=== PATIENT | female | born 1960 | race Caucasian/White ===

== ENCOUNTER → 2018-07-19 07:24 | Outpatient (CLI) | payer OTHER, SELFPAY ==
--- NOTE | 2018-07-19 07:00 | BI_ITS ---
MAMMOGRAPHY - BILATERAL SCREENING REASON FOR EXAM: Female, 58 years old. Routine annual screening examination. PERTINENT HISTORY: Non-contributory. TECHNIQUE: Digital bilateral breast manoj (3D mammographic acquisition) in the CC and MLO projections. 2-D mediolateral oblique (MLO) and craniocaudad (CC) views of both breasts were obtained. CAD: Full Field Digital Mammography with Computer Added Detection was performed. COMPARISON: Comparison is made with prior study dated March 03, 2017 and December 19, 2015. FINDINGS: Breast Composition: The breasts are heterogeneously dense, which may obscure small masses. There are no dominant masses or suspicious calcifications. No other significant abnormalities are identified. There has been no significant change since the prior study. BI/SCREENING MAMM (CAD), BILAT IMPRESSION: Stable bilateral screening mammogram. Yearly follow-up mammogram recommended. (A) ASSESSMENT CATEGORY: BIRADS Category 1: Negative. A letter regarding these results will be sent to the patient by the facility within 30 days. Approximately 10% of breast cancers are not detected by mammography. A normal mammogram should not delay biopsy of a clinically suspicious abnormality. [id number] Electronically Signed: Ger Herrera MD at 13:41 EDT Tel [phone], Service support ,
== END ==
PROVIDERS: Visit Provider Nurse Practitioner Women's Health
DX: Z12.31 Encounter for screening mammogram for malignant neoplasm of breast (principal)
CPT/HCPCS: 77063; 77067

== ENCOUNTER → 2018-07-26 19:16 | Outpatient (CLI) | payer OTHER, SELFPAY ==
[2018-08-02 13:43] LABS: HPV APTIMA, High Risk Negative (Negative)
== END ==
PROVIDERS: Family Provider Nurse Practitioner Adult Health; PCP Nurse Practitioner Adult Health; Referring Provider Nurse Practitioner Women's Health; Visit Provider Nurse Practitioner Women's Health
DX: Z12.4 Encounter for screening for malignant neoplasm of cervix (principal)
CPT/HCPCS: 87624; 88175; G0145

== ENCOUNTER → 2018-09-07 16:51 | Outpatient (CLI) | payer OTHER, SELFPAY ==
[2018-07-26 15:14] VITALS: BMI 22.7
[2018-09-14 12:01] LABS: HPV APTIMA, High Risk Negative (Negative)
--- OUTSIDE RECORDS SUMMARY | 2018-10-24 22:05 | XMS RPT_ITS ---
:1960 Author Organization OHIP Care Team Providers Name Role Phone Juli Hedrick Attending Unavailable Tickton, Anjelica Referring Unavailable Floridalma, Juli Attending Unavailable [place], Juli Referring Unavailable Tickton, Anjelica Primary Care Unavailable [place], Juli Attending Unavailable Primay Care Physicia, No Primary Care Unavailable Janet Weiss Consulting Unavailable Floridalma, Juli Attending Unavailable Tickton, Anjelica Referring Unavailable Floridalma, Juli Attending Unavailable [place], Juli Referring Unavailable Tickton, Anjelica Primary Care Unavailable PROBLEMS PROBLEMS DATE TYPE CONDITION / CODE ATTENDING STATUS SOURCE 09/07/2018 Unknown R87.615 - Juli Hedrick Active [place] Unsatisfactory Community cytologic smear of [facility] cervix / Repository R87.615(ICD-10) 07/27/2018 Unknown Z12.4 - Encounter for Juli Hedrick Active [place] screening for [facility] malignant neoplasm of Hospital cervix / Repository Z12.4(ICD-10) 07/26/2018 Unknown Z01.411 - Encounter Juli Hedrick Active [place] for gynecological Community examination (general) Hospital (routine) with Repository abnormal findings / Z01.411(ICD-10) 07/26/2018 Unknown N89.8 - Other Juli Hedrick Active [place] specified Community noninflammatory Hospital disorders of vagina / Repository N89.8(ICD-10) 08/09/2018 Unknown Z12.31 - Encounter Juli Hedrick Active [place] for screening [facility] mammogram for Hospital malignant neoplasm of Repository breast / Z12.31(ICD-10) PROCEDURES PROCEDURES No Procedure Records FoundRESULTS RESULTS MEASUREMENT SUPERINTENDENT OFFICE VISIT Observed: 09/07/2018 Status: F Source: [place] REPORT 2:08 PM [facility] REPOSITORY [facility] [address] [place] [address] OFFICE VISIT Date of Service: 09/07/18 MR#: [id number] Acct: [id number] Name: CLARISA REDDY Rep #: [id number] : 1960 Provider: JF Hedrick Age/Sex: 58/F [place] [facility] [place]: Signed Intake Intake Visit Reasons: PAP, Previous pap did not have enough cells Allergies No Known Allergies Allergy (Verified 07/26/18 15:09) Medications NK 07/26/18 [History Confirmed 07/26/18] PFSH Family History Mother Heart disease Hypertension Thyroid disorder Father Hypertension Heart disease Diabetes Leukemia Hyperlipidemia Grandmother Cancer Grandfather Diabetes Hypertension Heart disease Hyperlipidemia Social History Smoking Status: Never smoker alcohol intake: never substance use type: does not use caffeine: No what type of physical activity do you participate in: walking frequency: 1-2 times per week seatbelt use: always do you feel safe at home: Yes additional social history: - Karli- Bottler Patient senior accounting specialist at [employer] HPI PAP, Previous pap did not have enough cells : Details: CLARISA REDDY is a 58 year old who presents for repeat pap only for inadequate specimen in June. Pregancy History 2 Elective abortions Hx Para 2 Spontaneous abortions Past Pregnancies Del. DatName GA/WeeksOutcome Route [facility] Candace Goodwin LgAnestheWVjase LocaProviderFOB e ht en ia tn Unknown Ravi-[id number] 0 Unknown Riana-19 95 Exam Speculum Exam - Vagina: normal appearance of the vagina (pap collected) Assessment AND Plan Problems 1. Unsatisfactory cervical Papanicolaou smear R87.615 Plan Thin prep pap with HPV Coding Level of Care Code No Charge Diagnoses Unsatisfactory cervical Papanicolaou smear R87.615 09/07/18 1408 <Electronically signed by Juli Hedrick NP-C> Date Juli Hedrick CONSTRUCTION WORKER-C Cosigner Signature: Date (if applicable) CC: PAP IG HPV APTIMA Collected: 09/07/2018 Status: F Source: [place] /18,45 2:00 PM [facility] REPOSITORY Order Comment: CYTOLOGY INFORMATION: - CLINICAL INFORMATION: ANNUAL - DATE LMP/MENOPAUSE: MENOPAUSE - COLLECTION VIAL: Thin Prep Vial - RESIDENTIAL CHILD CARE COUNSELOR SOURCE: CERVICAL - COLLECTION TECHNIQUE: CX BROOM ONLY, BRUSH ONLY Specimen Comment: [id number] Specimen Comment: Source.............Cervix Specimen Comment: Other..............Post Menopausal Specimen Comment: No. of containers..01 ThinPrep Vial TYPE CODE TESTS RESULT OUT OF RANGE REFERENCE UNITS LAB L7400.0800 . Normal DIAGN Comment Result Comment: NEGATIVE FOR INTRAEPITHELIAL LESION AND MALIGNANCY. CELLULAR CHANGES ASSOCIATED WITH ATROPHY ARE PRESENT. THIS SPECIMEN WAS RESCREENED PART OF OUR [employer] PROGRAM. LAB L7400.0900 . Normal ADEQ Comment Result Comment: Satisfactory for evaluation. Endocervical and/or squamous metaplastic cells (endocervical component) are present. LAB L7400.1400 . Normal PERFORM Comment Result Comment: Sushma Casillas, Chiropractic Assistant (ASCP) LAB L7400.1500 . Normal QC Comment REV Result Comment: Jessica Lucio, Chiropractic Assistant (ASC) LAB L7400.2575 . Normal TEST METHOD Comment Result Comment: This liquid based ThinPrep(R) pap test was screened with the use of an image guided system. LAB L7400.2600 . Normal . COMM LAB L7400.2700 . Normal PAPSMR Comment Result Comment: The Pap smear is a screening test designed to aid in the detection of premalignant and malignant conditions of the uterine cervix. It is not a diagnostic procedure and should not be used as the sole means of detecting cervical cancer. Both false-positive and false-negative reports do occur. LAB L7400.2760 Negative Normal HPV APTIMA, Negative HR Result Comment: This test detects fourteen high-risk HPV types (16/18/31/33/35/39/45/ 51/52/56/58/59/66/68) without differentiation. Performed at: - [facility] [id number] Director Outpatient Services: Kimber Grullon MD, Phone: [phone] Performed at: =[facility] [id number] Director Outpatient Services: Kimber Grullon MD, Phone: [phone] Performed By: #### L7400.0280 #### [facility] (refer to report for specific site) refer to report for address and phone number MEASUREMENT SUPERINTENDENT OFFICE VISIT Observed: 07/26/2018 Status: F Source: [place] REPORT 3:47 PM [facility] [address] [place] [address] OFFICE VISIT Date of Service: 07/26/18 MR#: [id number] Acct: [id number] Name: CLARISA REDDY [place] Rep #: [id number] : 1960 Provider: JF Hedrick Age/Sex: 58/F [place] [facility] [place]: Signed Intake Vital Signs07/26/18 Height 5 ft 5 in 07/26/18 Weight: 136 lb 8 oz 07/26/18 Body Mass Index (BMI) 22.7 07/26/18 Blood Pressure 124/82 H Intake Visit Reasons: ANNUAL Electronic Warfare Officer Required: No Is patient in pain?: No Allergies No Known Allergies Allergy (Verified 07/26/18 15:09) Medications NK 07/26/18 [History Confirmed 07/26/18] Is last menstrual period known: No Post menopausal: No Patient : No : No PFSH Family History Mother Heart disease Hypertension Thyroid disorder Father Hypertension Heart disease Diabetes Leukemia Hyperlipidemia Grandmother Cancer Grandfather Diabetes Hypertension Heart disease Hyperlipidemia Social History Smoking Status: Never smoker alcohol intake: never substance use type: does not use caffeine: No what type of physical activity do you participate in: walking frequency: 1-2 times per week seatbelt use: always do you feel safe at home: Yes additional social history: - 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 DatName GA/WeeksOutcome Route [facility] LocaProviderFOB e ht en tn Unknown Ravi-199 0 Unknown Riana-19 95 HPI ANNUAL: Details: CLARISA REDDY is a 58 year old who presents for new patient annual exam. Denies concerns other then slight odor and unsure if urine or vaginal. Denies irritation, itching, discharge. RESIDENTIAL CHILD CARE COUNSELOR exams with PCP Dr. Omer. Last PAP: 2014 no HPV History of abnormal PAP: no Last mammogram: 07/19/18 History of abnormal mammogram: no Colon cancer screenin Female Reproductive History Questions: Metorrhagia: No, Sexually active: Yes, Dyspareunia: No, PCB: No Menopausal Symptoms: Yes hot flashes, Yes night sweats, Yes sleep problems Menopausal Treatment: No HRT ROS Const Constitutional: Reports night sweats Cardio Card: Denies chest pain Resp Resp: Denies cough or shortness of breath with activity GI GI: Denies abdominal pain, constipation, change in stools, vomiting or bloating : Reports hot flashes Exam Const General: cooperative, healthy appearing, no acute distress, well developed Orientation: alert, oriented to person, oriented to place HENMT Head: normal to inspection Neck Neck: normal visual inspection Thyroid: thyroid normal Lymphatic: no lymphadenopathy noted Chest Breast inspection: normal inspection of the breasts, normal inspection of the axillae Breast palpation: normal palpation of the breasts, normal palpation of the axillae, no axillary lymphadenopathy Resp Effort AND Inspection: normal respiratory effort GI Palpation: soft, nontender, no masses Rectal Exam: deferred External Female Exam: normal external appearance, normal appearance of the urethra Urethra: normal appearance of the urethra, normal palpation Speculum Exam - Vagina: normal appearance of the vagina, normal vaginal discharge, atrophic vaginal mucosa (mild) Speculum Exam - Cervix: normal appearance of the cervix (pap and BV collected) Bimanual Exam- Vagina AND Uterus: normal bimanual exam, uterine size normal, uterine shape normal, uterus non-tender Bimanual Exam- Adnexa, other: normal adnexae, no adnexal masses, adnexae non-tender, pelvic support normal Pelvic Support: normal Neuro General: alert, oriented x3 Psych Affect: normal affect Assessment AND Plan Problems 1. Encounter for gynecological examination with abnormal finding Z01.411 2. Papanicolaou smear for cervical cancer screening Z12.4 3. Vaginal odor N89.8 Plan Completed breast and pelvic exam Reviewed diet and exercise Pap thin prep pap with HPV Mammogram recent Contraception NA Colonoscopy up to date BRIANNA BV-call only if positive RTO 1 year, prn with problems Juli Hedrick CNP Coding Level of Care Code Off vis,new,prev 40-64yrs Diagnoses Encounter for gynecological examination with abnormal finding Z01.411 Gynecological examination findings: abnormal findings PRESENT Papanicolaou smear for cervical cancer screening Z12.4 Vaginal odor N89.8 07/26/18 1547 <Electronically signed by Juli TOC> Date Juli TOC Cosigner Signature: Date (if applicable) CC: PAP IG HPV APTIMA Collected: 07/26/2018 Status: F Source: [place] 16/18,45 3:30 PM [facility] REPOSITORY Order Comment: CYTOLOGY INFORMATION: - CLINICAL INFORMATION: ANNUAL - DATE LMP/MENOPAUSE: N/A - COLLECTION VIAL: Thin Prep Vial - RESIDENTIAL CHILD CARE COUNSELOR SOURCE: CERVICAL - COLLECTION TECHNIQUE: BRUSH/SPATULA Specimen Comment: [id number] Specimen Comment: Source.............Cervix Specimen Comment: No. of containers..01 ThinPrep Vial TYPE CODE TESTS RESULT OUT OF RANGE REFERENCE UNITS LAB L7400.0800 . Normal DIAGN Comment Result Comment: UNSATISFACTORY FOR EVALUATION. LAB L7400.0900 . Normal ADEQ Comment Result Comment: Specimen processed and examined, but unsatisfactory for evaluation of epithelial abnormality because of excessive lubricant. LAB L7400.1300 . Normal RECOMM Comment Result Comment: Suggest follow up as clinically appropriate. LAB L7400.1400 . Normal PERFORM Comment Result Comment: Nuvia Keller, Chiropractic Assistant (ASC) LAB L7400.1500 . Normal QC Comment REV Result Comment: Funmi Lanza, Supervisory Chiropractic Assistant ([facility]) LAB L7400.2575 . Normal Test not TEST METHOD performed Result Comment: The Thin Prep(R) Mixed Crop And Livestock Farm Worker was unable to read this specimen. Therefore a manual review was performed. LAB L7400.2600 . Normal . COMM LAB L7400.2700 . Normal PAPSMR Comment Result Comment: The Pap smear is a screening test designed to aid in the detection of premalignant and malignant conditions of the uterine cervix. It is not a diagnostic procedure and should not be used as the sole means of detecting cervical cancer. Both false-positive and false-negative reports do occur. LAB L7400.2760 Negative Normal HPV APTIMA, Negative HR Result Comment: This test detects fourteen high-risk HPV types (16/18/31/33/35/39/45/ 51/52/56/58/59/66/68) without differentiation. Performed at: [address] [id number] Director Outpatient Services: Kimber Grullon MD, Phone: [phone] Performed at: =[address] [id number] Director Outpatient Services: Kimber Grullon MD, Phone: [phone] Performed By: #### L7400.0280 #### [facility] (refer to report for specific site) refer to report for address and phone number SCREENING MAMM (CAD), Observed: 07/19/2018 Status: F Source: [place] BILAT 6:56 AM [facility] REPOSITORY [facility] Imaging Services [address] [place] [address] SCREENING MAMM (CAD), BILAT MR#: [id number] Acct: [id number] Name: CLARISA REDDY Rep #: [id number] : 1960 F 58 From: Ger Herrera MD PCP: Care Physician, No Primary Status: REG CLI Study: SCREENING MAMM (CAD), BILAT Date of Exam: 07/19/18 Exam# [id number] Ordering Dr: Juli Hedrick CONSTRUCTION WORKER-Jacquie MAMMOGRAPHY - BILATERAL SCREENING REASON FOR EXAM: Female, 58 years old. Routine annual screening examination. PERTINENT HISTORY: Non-contributory. TECHNIQUE: Digital bilateral breast manoj (3D mammographic acquisition) in the CC and MLO projections. 2-D mediolateral oblique (MLO) and craniocaudad (CC) views of both breasts were obtained. CAD: Full Field Digital Mammography with Computer Added Detection was performed. COMPARISON: Comparison is made with prior study dated March 03, 2017 and December 19, 2015. FINDINGS: Breast Composition: The breasts are heterogeneously dense, which may obscure small masses. There are no dominant masses or suspicious calcifications. No other significant abnormalities are identified. There has been no significant change since the prior study. BI/SCREENING MAMM (CAD), BILAT IMPRESSION: Stable bilateral screening mammogram. Yearly follow-up mammogram recommended. (A) ASSESSMENT CATEGORY: BIRADS Category 1: Negative. A letter regarding these results will be sent to the patient by the facility within 30 days. Approximately 10% of breast cancers are not detected by mammography. A normal mammogram should not delay biopsy of a clinically suspicious abnormality. [id number] Electronically Signed: Ger Herrera MD at 13:41 EDT Tel [phone], Service support , CC: JF Hedrick; No Primary Care Physician Sound System Installer: Signed ALLERGIES ALLERGIES DATE TYPE / CODE NAME / CODE REACTION SEVERITY SOURCE 07/26/2018 Drug No Known Unknown [facility] Allergy/4160 Allergies/F00 Hospital 41982(SNOMED 8720094(RXNOR Repository CT) M) ENCOUNTERS ENCOUNTERS ADMIT/DISCHARGE ACCOUNT ADMITTING ENCOUNTER LOCATION SOURCE NUMBER CLASS 09/07/2018 [id number] Amb[place] [facility] ing:[facility] Repository 09/07/2018/ [id number] Ambulatory BMSBuilding:B [place] [facility] 8 [facility] Repository 07/26/2018 [id number] Ambulatory [place] 1 [facility] ing:[facility] Repository 07/26/2018/ [id number] Ambulatory BMSBuilding:B [place] 8 3 [facility] Repository 07/19/2018 [id number] Ambulatory [place] 8 [facility] ing:OPBI Repository PAYERS PAYERS ENCOUNTER GUARANTOR PAYER SUBSCRIBER SOURCE 09/07/2018 KARLI Holbrook Primary CLARISA A [place] [id number] [place] [facility] Number: [id number] Hospital [address]Tcz: (480) [id number] Repository [phone] () Date:7641-80-48[address], [place] [address]JS: 09/07/2018 Secondary NOT GIVENUNK [place] Insurance:SELF PAY [facility] Number: Effective Repository Date:2018-09-07 09/07/2018 KARLI Holbrook Primary CLARISA A [place] [id number] [place] [facility]: [id number] [address]Fmz: (330) [id number] Repository [phone] (HP) Date:8720-29-31[address], [place] [address]YJ: 09/07/2018 Secondary NOT GIVENUNK [place] Insurance:SELF PAY [facility] Number: Effective Repository Date:2018-09-07 07/26/2018 KARLI K Primary CLARISA A [place] [id number] [place] Insurance:SUM[place]ERDOB: [place] CAREPolicy Number: [id number] [facility] [address]Nua: (330) [id number] Repository [phone] (HP) Date:9414-63-63DR [address] [place] [address]VE: 07/26/2018 Secondary NOT GIVENUNK [place] Insurance:SELF PAY [facility] Number: Effective Repository Date:2018-07-26 07/26/2018 KARLI K Primary CLARISA A [place] [id number] [place] Insurance:SUMMA MOSERDOB: [facility] [place] CAREPolicy Number: [id number] [address]Dfs: (330) [id number] Repository [phone] () Date:3283-78-23[address] [address]DS: 07/26/2018 Secondary NOT GIVENUNK [place] Insurance:SELF PAY [facility] Number: Effective Repository Date:2018-06-21 07/19/2018 KARLI K Primary CLARISA A [place] [id number] [place] Insurance:SUMMA MOSERDOB: [facility] [place] CAREPolicy Number: [id number] Hospital [address]Hhm: (330) [id number] Repository [phone] (HP) Date:1156-22-94[address] [address]WW: 07/19/2018 Secondary NOT GIVENUNK [place] Insurance:SELF PAY [facility] Number: Effective Repository Date:2018-06-09
== END ==
PROVIDERS: Family Provider Nurse Practitioner Adult Health; PCP Nurse Practitioner Adult Health; Referring Provider Nurse Practitioner Women's Health; Visit Provider Nurse Practitioner Women's Health
DX: R87.615 Unsatisfactory cytologic smear of cervix (principal); Z78.0 Asymptomatic menopausal state
CPT/HCPCS: 87624; 88175; G0145

== ENCOUNTER → 2019-09-05 06:54 | Outpatient (CLI) | payer OTHER, SELFPAY ==
--- NOTE | 2019-09-05 06:58 | BI_ITS ---
MAMMOGRAPHY - BILATERAL SCREENING REASON FOR EXAM: Female, 59 years old. Routine annual screening examination. PERTINENT HISTORY: Non-contributory. TECHNIQUE: Digital bilateral breast jairo (3D mammographic acquisition) in the CC and MLO projections. 2-D mediolateral oblique (MLO) and craniocaudad (CC) views of both breasts were obtained. CAD: Full Field Digital Mammography with Computer Added Detection was performed. COMPARISON: Comparison is made with prior study dated July 19, 2018 and March 03, 2017. FINDINGS: Breast Composition: The breasts are heterogeneously dense, which may obscure small masses. There are no dominant masses or suspicious calcifications. No other significant abnormalities are identified. There has been no significant change since the prior study. BI/SCREEN MAMM (CAD) W/JAIRO BILAT IMPRESSION: Stable bilateral screening mammogram. Yearly follow-up mammogram recommended. (A) ASSESSMENT CATEGORY: BIRADS Category 1: Negative. A letter regarding these results will be sent to the patient by the facility within 30 days. Approximately 10% of breast cancers are not detected by mammography. A normal mammogram should not delay biopsy of a clinically suspicious abnormality. [id number] Electronically Signed: Ger Herrera, at 8:34 EST , Service support ,
== END ==
PROVIDERS: Family Provider Nurse Practitioner Family; PCP Nurse Practitioner Family; Referring Provider Nurse Practitioner Family; Visit Provider Nurse Practitioner Family
DX: Z12.31 Encounter for screening mammogram for malignant neoplasm of breast (principal)
CPT/HCPCS: 77063; 77067

== ENCOUNTER → 2019-09-22 07:02 | Outpatient (CLI) | payer OTHER, SELFPAY ==
[2019-09-22 11:13] LABS: Albumin, Serum 3.7 g/dL (3.2-5.0); BUN 14 mg/dL (7-18); BUN/Creat Ratio 19.1 RATIO (10-20); Creatinine, Serum 0.73 mg/dL (0.55-1.02); EST Glomerular Filtration Rate 87 mL/min (>60); Est Glom Filt Rate - Afr Amer 105 mL/min (>60); Glucose 88 mg/dL (74-106); Protein, Total 7.3 g/dL (6.4-8.2)
[2019-09-22 11:14] LABS: AST(SGOT) 27 U/L (15-37); Alanine Aminotransfer ALT/SGPT 38 U/L (13-56); Alkaline Phosphatase 68 U/L (45-117); Anion Gap 5 (5-15); Calcium,Total 9.3 mg/dL (8.5-10.1); Chloride 108 mmol/L (98-107); Cholesterol 218 mg/dL (200); Globulin 3.6 g/dL (2.2-4.2); High Density Lipoprotein 62 mg/dL; Potassium 3.9 mmol/L (3.5-5.1); Sodium Level 142 mmol/L (136-145); Triglycerides 196 mg/dL; Very Low Density Lipoprotein 39 mg/dL (5-40)
== END ==
PROVIDERS: Family Provider Nurse Practitioner Family; PCP Nurse Practitioner Family; Referring Provider Nurse Practitioner Family; Visit Provider Nurse Practitioner Family
DX: Z00.00 Encounter for general adult medical examination without abnormal findings (principal)
CPT/HCPCS: 36415; 80053; 80061

== ENCOUNTER → 2020-10-25 07:06 | Outpatient (CLI) | payer OTHER, SELFPAY ==
--- NOTE | 2020-10-25 07:01 | BI_ITS ---
MAMMOGRAPHY - BILATERAL SCREENING REASON FOR EXAM: Female, 60 years old. Routine annual screening examination. PERTINENT HISTORY: Non-contributory. TECHNIQUE: Digital bilateral breast jairo (3D mammographic acquisition) in the CC and MLO projections. 2-D mediolateral oblique (MLO) and craniocaudad (CC) views of both breasts were obtained. CAD: Full Field Digital Mammography with Computer Added Detection was performed. COMPARISON: Comparison is made with prior study dated 09/05/2019 and 07/19/2018. FINDINGS: Breast Composition: The breasts are heterogeneously dense, which may obscure small masses. There are no dominant masses or suspicious calcifications. No other significant abnormalities are identified. There has been no significant change since the prior study. BI/SCRN MAMM (CAD)W/JAIRO BILAT IMPRESSION: Stable bilateral screening mammogram. Yearly follow-up mammogram recommended. (A) ASSESSMENT CATEGORY: BIRADS Category 1: Negative. A letter regarding these results will be sent to the patient by the facility within 30 days. Approximately 10% of breast cancers are not detected by mammography. A normal mammogram should not delay biopsy of a clinically suspicious abnormality. [id number] Electronically Signed: Ger Herrera MD at 8:41 EST , Service support ,
== END ==
PROVIDERS: PCP Nurse Practitioner Primary Care; Referring Provider Nurse Practitioner Primary Care; Visit Provider Nurse Practitioner Primary Care
DX: Z12.31 Encounter for screening mammogram for malignant neoplasm of breast (principal)
CPT/HCPCS: 77063; 77067

== ENCOUNTER → 2021-09-23 10:44 | Outpatient (CLI) | payer OTHER, SELFPAY ==
[2021-09-23 12:30] LABS: Absolute Lymphocyte Count 1.58 X10^3/uL (0.83-4.51); Basophil# 0.02 X10^3/uL; Basophil% 0.5 % (0-1); Eosinophil# 0.13 X10^3/uL; Eosinophils% 3.2 % (0-5); Hematocrit 44.1 % (37-47); Hemoglobin 14.5 g/dL (12.0-15.0); Lymphocyte # 1.58 X10^3/ul (0.83-4.51); Mean Corp Hgb Conc 32.9 g/dL (32-36); Mean Corpuscular Hgb 30.3 pg (27.0-32.0); Mean Corpuscular Volume 92.1 fL (81-99); Mean Platelet Vol. 9.9 fl (6.2-12.0); Monocyte# 0.34 X10^3/uL; Monocyte% 8.4 % (0-10); NRBC Flagged by Analyzer 0 % (0-5); Neutrophil # 1.98 X10^3/uL (2.7-7.7); Neutrophil % 48.9 % (47-70); Platelet Count 272 K/mm3 (150-450); RBC Distribution Width CV 11.7 % (11.6-14.6); RBC Distribution Width SD 39.5 fl (35.1-43.9); Red Blood Count 4.79 M/mm3 (4.2-5.4); White Blood Count 4.1 K/mm3 (4.4-11.0)
[2021-09-23 12:45] LABS: AST(SGOT) 27 U/L (15-37); Alanine Aminotransfer ALT/SGPT 45 U/L (13-56); Albumin, Serum 3.9 g/dL (3.2-5.0); Alkaline Phosphatase 72 U/L (45-117); Anion Gap 7 (5-15); BUN 15 mg/dL (7-18); BUN/Creat Ratio 20.9 RATIO (10-20); Calcium,Total 9.5 mg/dL (8.5-10.1); Chloride 103 mmol/L (98-107); Cholesterol 219 mg/dL (200); Creatinine, Serum 0.72 mg/dL (0.55-1.02); EST Glomerular Filtration Rate 88 mL/min (>60); Est Glom Filt Rate - Afr Amer 107 mL/min (>60); Glucose 96 mg/dL (74-106); High Density Lipoprotein 59 mg/dL; Protein, Total 7.9 g/dL (6.4-8.2); Sodium Level 140 mmol/L (136-145); Triglycerides 172 mg/dL; Very Low Density Lipoprotein 34 mg/dL (5-40)
[2021-09-29 12:07] LABS: Age Gdln ACOG Testing 30-65 (.)
[2021-09-29 14:07] LABS: HPV APTIMA, High Risk Negative (Negative)
[2021-09-29 14:08] LABS: HPV Reflexed? YES, CHARGE PATIENT
== END ==
PROVIDERS: PCP Registered Nurse; Referring Provider Registered Nurse; Visit Provider Registered Nurse
DX: Z00.00 Encounter for general adult medical examination without abnormal findings (principal); Z12.4 Encounter for screening for malignant neoplasm of cervix
CPT/HCPCS: 36415; 80053; 80061; 85025; 87624; 88175; G0145

== ENCOUNTER 2021-10-27 07:10 | Outpatient (CLI) | payer OTHER, SELFPAY ==
--- NOTE | 2021-10-27 07:04 | BI_ITS ---
MAMMOGRAPHY - BILATERAL SCREENING REASON FOR EXAM: Female, 61 years old. Routine annual screening examination. PERTINENT HISTORY: Non-contributory. TECHNIQUE: Digital bilateral breast jairo (3D mammographic acquisition) in the CC and MLO projections. 2-D mediolateral oblique (MLO) and craniocaudad (CC) views of both breasts were obtained. CAD: Full Field Digital Mammography with Computer Added Detection was performed. COMPARISON: Comparison is made with prior study dated 10/25/2020 and 09/05/2019. FINDINGS: Breast Composition: The breasts are heterogeneously dense, which may obscure small masses. There are no dominant masses or suspicious calcifications. No other significant abnormalities are identified. There has been no significant change since the prior study. BI/SCRN MAMM (CAD)W/JAIRO BILAT IMPRESSION: Stable bilateral screening mammogram. Yearly follow-up mammogram recommended. (A) ASSESSMENT CATEGORY: BIRADS Category 1: Negative. A letter regarding these results will be sent to the patient by the facility within 30 days. Approximately 10% of breast cancers are not detected by mammography. A normal mammogram should not delay biopsy of a clinically suspicious abnormality. [id number] Electronically Signed: Ger Herrera MD at 8:11 EST ,
== END 2021-10-27 23:59 | disposition short-term general hospital (02) ==
LOC: OPBI 07:11
PROVIDERS: PCP Registered Nurse; Referring Provider Registered Nurse; Visit Provider Registered Nurse
DX: Z12.31 Encounter for screening mammogram for malignant neoplasm of breast (principal)
CPT/HCPCS: 77063; 77067

== ENCOUNTER → 2022-11-02 | Outpatient (CLI) | payer OTHER, SELFPAY ==
[2022-11-02 17:45] LABS: Absolute Lymphocyte Count 1.85 X10^3/uL (0.83-4.51); Absolute Neutrophil Count 4.7 X10^3/uL (2.0-7.7); Basophil# 0.04 X10^3/uL; Basophil% 0.5 % (0-1); Eosinophil# 0.28 X10^3/uL; Eosinophils% 3.6 % (0-5); Hemoglobin 13.3 g/dL (12.0-15.0); Lymphocyte # 1.85 X10^3/ul (0.83-4.51); Mean Corp Hgb Conc 31.7 g/dL (32-36); Mean Corpuscular Hgb 29.9 pg (27.0-32.0); Mean Corpuscular Volume 94.4 fL (81-99); Mean Platelet Vol. 10.2 fl (6.2-12.0); Monocyte# 0.84 X10^3/uL; Monocyte% 10.9 % (0-10); NRBC Flagged by Analyzer 0 % (0-5); Neutrophil # 4.67 X10^3/uL (2.7-7.7); Neutrophil % 60.6 % (47-70); Platelet Count 259 K/mm3 (150-450); RBC Distribution Width CV 12.3 % (11.6-14.6); RBC Distribution Width SD 42.8 fl (35.1-43.9); Red Blood Count 4.45 M/mm3 (4.2-5.4); White Blood Count 7.7 K/mm3 (4.4-11.0)
== END | disposition home or self-care (01) ==
PROVIDERS: PCP Registered Nurse; Referring Provider Nurse Practitioner Family; Visit Provider Nurse Practitioner Family
DX: R53.83 Other fatigue (principal)
CPT/HCPCS: 36415; 85025

== ENCOUNTER → 2022-12-07 | Outpatient (CLI) | payer OTHER, SELFPAY ==
--- NOTE | 2022-12-07 12:06 | BI_ITS ---
MAMMOGRAPHY - BILATERAL SCREENING 3-D TOMOSYNTHESIS REASON FOR EXAM: Female, 62 years old. Routine screening PERTINENT HISTORY: No significant family history. TECHNIQUE: 2-D mammograms and 3-D Tomosynthesis of the breast (s) were performed. CAD was performed. COMPARISON: 10/25/2020 FINDINGS: The breast composition is composed of scattered fibroglandular density. Scattered benign calcifications are seen. No dense spiculated masses or suspicious microcalcifications are identified. No architectural distortion is identified. There is no skin thickening or retraction. There has been no significant change since the prior study. BI/SCRN MAMM (CAD)W/JAIRO BILAT IMPRESSION: No mammographic signs of malignancy. Routine yearly mammograms recommended. ASSESSMENT CATEGORY: BIRADS Category 1: Negative. A letter regarding these results will be sent to the patient by the facility within 30 days. FOLLOW UP RECOMMENDATION: Yearly follow up mammogram recommended. (A) Approximately 10% of breast cancers are not detected by mammography. A normal mammogram should not delay biopsy of a clinically suspicious abnormality. Electronically Signed: El Dietz MD at 13:02 EDT ,
== END | disposition home or self-care (01) ==
LOC: OPBI 12:03
PROVIDERS: PCP Registered Nurse; Visit Provider Family Medicine
DX: Z12.31 Encounter for screening mammogram for malignant neoplasm of breast (principal)
CPT/HCPCS: 77063; 77067

== ENCOUNTER → 2024-05-12 | Outpatient (CLI) | payer OTHER, SELFPAY ==
[2024-05-12 10:06] LABS: Hematocrit 42.1 % (37-47); Hemoglobin 13.7 g/dL (12.0-15.0); Mean Corp Hgb Conc 32.5 g/dL (32-36); Mean Corpuscular Hgb 30.4 pg (27.0-32.0); Mean Corpuscular Volume 93.6 fL (81-99); Mean Platelet Vol. 10.7 fl (6.2-12.0); Platelet Count 259 K/mm3 (150-450); RBC Distribution Width CV 11.8 % (11.6-14.6); RBC Distribution Width SD 40.7 fl (35.1-43.9); White Blood Count 5.2 K/mm3 (4.4-11.0)
[2024-05-12 10:30] LABS: AST(SGOT) 23 U/L (15-37); Alanine Aminotransfer ALT/SGPT 30 U/L (13-56); Albumin, Serum 3.7 g/dL (3.2-5.0); Alkaline Phosphatase 71 U/L (45-117); Anion Gap 4 (5-15); BUN 16 mg/dL (7-18); Calcium,Total 9.5 mg/dL (8.5-10.1); Chloride 105 mmol/L (98-107); Cholesterol 216 mg/dL (200); Creatinine, Serum 0.73 mg/dL (0.55-1.02); EST Glomerular Filtration Rate 86 mL/min (>60); Est Glom Filt Rate - Afr Amer 104 mL/min (>60); Globulin 3.7 g/dL (2.2-4.2); Glucose 92 mg/dL (74-106); High Density Lipoprotein 62 mg/dL; Potassium 3.9 mmol/L (3.5-5.1); Protein, Total 7.4 g/dL (6.4-8.2); Sodium Level 139 mmol/L (136-145); Triglycerides 111 mg/dL; Very Low Density Lipoprotein 22 mg/dL (5-40)
== END | disposition home or self-care (01) ==
LOC: MTLAB 07:04
PROVIDERS: PCP Registered Nurse; Referring Provider Registered Nurse; Visit Provider Registered Nurse
DX: Z00.00 Encounter for general adult medical examination without abnormal findings (principal); T78.40XA Allergy, unspecified, initial encounter
CPT/HCPCS: 36415; 80053; 80061; 85027

== ENCOUNTER → 2024-05-23 | Outpatient (CLI) | payer OTHER, SELFPAY ==
--- NOTE | 2024-05-23 07:10 | BI_ITS ---
MAMMOGRAPHY - BILATERAL SCREENING REASON FOR EXAM: Female, 64 years old. Routine annual screening examination. PERTINENT HISTORY: Non-contributory. TECHNIQUE: Digital bilateral breast jairo (3D mammographic acquisition) in the CC and MLO projections. 2-D mediolateral oblique (MLO) and craniocaudad (CC) views of both breasts were obtained. CAD: Full Field Digital Mammography with Computer Added Detection was performed. COMPARISON: Comparison is made with prior study dated December 07, 2022 and October 27, 2021. FINDINGS: Breast Composition: The breasts are heterogeneously dense, which may obscure small masses. There are no dominant masses or suspicious calcifications. No other significant abnormalities are identified. There has been no significant change since the prior study. BI/SCRN MAMM (CAD)W/JAIRO BILAT IMPRESSION: Stable bilateral screening mammogram. Yearly follow-up mammogram recommended. (A) ASSESSMENT CATEGORY: BIRADS Category 1: Negative. A letter regarding these results will be sent to the patient by the facility within 30 days. Approximately 10% of breast cancers are not detected by mammography. A normal mammogram should not delay biopsy of a clinically suspicious abnormality. [id number] Electronically Signed: Ger Herrera MD at 8:09 EDT ,
== END | disposition home or self-care (01) ==
PROVIDERS: PCP Registered Nurse; Referring Provider Registered Nurse; Visit Provider Registered Nurse
DX: Z12.31 Encounter for screening mammogram for malignant neoplasm of breast (principal)
CPT/HCPCS: 77063; 77067

== ENCOUNTER → 2025-06-29 | Outpatient (CLI) | payer OTHER, SELFPAY ==
--- NOTE | 2025-06-29 07:04 | BI_ITS ---
EXAM: SCRN MAMM (CAD)W/JAIRO BILAT DATE: 06/29/2025 CLINICAL HISTORY: F, Age 65 y/o , SCREENING TECHNIQUE: Procedure Code: [id number] Modality: MG Procedure: SCRN MAMM (CAD)W/JAIRO BILAT COMPARISON: Prior exam(s) dated 05/23/2024, 12/07/2022, 10/27/2021. FINDINGS: TISSUE DENSITY: There are scattered areas of fibroglandular density. Bilateral Breast Mammographic Findings: No significant masses, calcifications or other abnormalities are identified. BI/SCRN MAMM (CAD)W/JAIRO BILAT IMPRESSION: There is no mammographic evidence of malignancy. OVERALL FINAL ASSESSMENT BI-RADS 1: NEGATIVE. RECOMMENDATION: Routine annual follow-up in 1 Year Additional Recommendation none A letter with findings and recommendations will be mailed to the patient. Reading Location: [id number]
--- OUTSIDE RECORDS SUMMARY | 2025-06-29 07:20 | XMS RPT_ITS | CCD ---
Author Organization [facility] Inform ion Partnership [facility] Care Team Providers Care Lab Tester Name Role Phone Kosta HEALTHCARE NETWORK CONSULTANT, JF-C Sushma Primary Care Provider Kosta RHOADES, JF-C Sushma Referring Provider JB Braun Attending Provider KOSTA BRUNER-SUZI, SUSHMA Alcantara Primary Care Physi abhijeet MAYA LAZO, DR BRUNO Attending Lambert CADET APRN-SUZI, SUSHMA Alcantara Primary Care Un available KOSTA MILES, SUSHMA Alcantara Attending Un available KOSTA MILES, SUSHMA Alcantara Primary Care Un available Kosta HEALTHCARE NETWORK CONSULTANT, Sushma Attending Lambert Cadet NP, Sushma Primary Care Lambert Cadet HEALTHCARE NETWORK CONSULTANT, Sushma Attending Lambert Cadet HEALTHCARE NETWORK CONSULTANT, Sushma Referring Lambert Cadet HEALTHCARE NETWORK CONSULTANT, Sushma Primary Care Lambert e Medications Current Medications Medication Drug Class(es) Dates Sig (Normalized) Sig (Original) azithromycin 250 mg oral tablet (1 source) Macrolide Antimicrobial Start: 10-02-2022 Azithromycin Active 0 PO .COMPLEX October 02, 2022 12:00am take 500 mg today (day 1), then 250 mg for 4 days (days 2-5) PO biotin 1 mg oral capsule (1 source) Start: 10-02-2022 take 1 mg by mouth once daily Biotin Active 1 MG PO DAILY October 02, 2022 12:00am calcium carbonate 500 mg chewable tablet (1 source) Start: 06-08-2025 take 1 mg by mouth once daily Tums 500 mg oral tablet, chewable mg = tab(s), Chewed, qDay, 0 Refill(s) Start Date: 06/08/25 Status: Ordered Medication Dispense Status: Completed Total Allowed Fills: 1 Fills Dispensed: 0 Multivitamin preparation (3 sources) Start: 10-02-2022 take 1 tablet by mouth once daily Multivitamin Active 1 TABLET PO DAILY October 02, 2022 12:00am Start: 10-09-2020 take 1 tablet by edwar th once daily Multivitamin Dose = 1 tab(s), Oral, Daily, 0 Refill(s) Start Date: 10/09/20 Status: Ordered Medication Dispense Status: Completed Total Allowed Fills: 1 Fills Dispensed: 0 Start: 10-09-2020 take 1 tablet by edwar th once daily Multivitamin Dose = 1 tab(s), Oral, Daily, 0 Refill(s) Start Date: 10/09/20 Status: Ordered terbinafine hydrochloride 10 mg/ml topical cream (1 source) Allylamine Antifungal Start: 06-08-2025 End: 07-06-2025 apply 1 dose topically twice daily terbinafine 1% topical cream Apply 1 curt, Topical, BID, X 14 day(s), # 30 gram(s), 1 Refill(s), Pharmacy: [facility], Cream, 164, cm, 06/08/25 16:04:00 EDT, Height, 61.1, kg, 06/08/25 16:04:00 EDT, Dosing Weight Start Date: 06/08/25 Stop Date: 07/06/25 Status: Ordered Medication Dispense Status: Completed Quantity: 30.0 Unit: g Total Allowed Fills: 2 Fills Dispensed: 0 Indications: Pityriasis versicolor; Completed/Discontinued Medications Medication Drug Class(es) Dates Sig (Normalized) Sig (Original) MiscMED Miscellaneous Medication (2 sources) Start: 06-08-2025 MiscMED Miscellaneous Medication See Instructions, Takes 2 gummies of Vitamin D3 daily, 0 Refill(s), 59.1 Start Date: 06/08/25 Status: Ordered Medication Dispense Status: Completed Total Allowed Fills: 1 Fills Dispensed: 0 Start: 06-08-2025 MiscMED Miscel laneous Medication See Instructions, Takes 2 gummies of magnesium daily, 0 Refill(s), 59.1 Start Date: 06/08/25 Status: Ordered Medication Dispense Status: Completed Total Allowed Fills: 1 Fills Dispensed: 0 Problems Problem Classification Problem Date Documented Da te Episodic/Chronic Acute bronchitis (2 sources) Acute bronchitis; Translations: [Acute bronchitis, unspecified] 10-02-2022 Episodic Allergic reactions (2 sources) Allergic condition 05-08-2024 Episodic Mycoses (1 source) Pityriasis versicolor 06-08-2025 Episodic Other screening for suspected conditions (not mental disorders or infectious disease) (5 sources) Encounter for screening for malignant neoplasm of cervix; Translations: [Encounter for other screening for malignant neoplasm of breast] Onset: 06-08-2025 Episodic Unclassified (8 sources) Patient encounter status 10-09-2020 Unclassified (1 source) Cancer cervix screening status 06-08-2025 Results Test Name Value Interpretation Reference Range Facility [employer] [facility] Cytology Reporton 2024 [employer] [facility] Cytology Report . Pathology Reports Accession: Collected Date/Time: Received Date/Time: Pathologist: [id number] 06/08/2025 16:43 EDT 06/08/2025 18:00 EDT [employer] [facility] Cytology Report SPECIMEN: Specimen Description: Liquid Prep Reflex ASCUS+ Specimen: Cervical/Endocervica l Screening or Diagnostic: Screening RELEVANT HISTORY: LMP: Menopause SPECIMEN ADEQUACY: SATISFACTORY FOR EVALUATION Endocervical/Transfo rmational zone component presence can not be determined due to marked atrophy INTERPRETATION/RESUL TS: NEGATIVE FOR INTRAEPITHELIAL LESION OR MALIGNANCY COMMENT: This Pap Test was successfully processed and evaluated with the assistance of the [employer] ThinPrep Test Imaging System. Verified by Pathology report verified by [facility] Screened by: DOTTY Electronically signed by Libia WALLS (ASCP) Sign-Out Date: 06/14/2025 11:58 Performing Lab: [facility], [address] [place] [address] Pathology Dept Disclaimer The Pap test is a screening test for cervical cancer. As evidenced by published data, it is subject to both inherent false negative and false positive results. Your patient's results should be interpreted in context with pertinent clinical history including gynecological examination. Normal [facility] Absolute lymphocyte countOrd ered By: Ida Crews on 11-02-2022 Lymphocytes Auto (Unsp spec) [#/Vol] 1.85 10*3/uL 0.83-4.51 [facility] Basophil percentageOrdered B y: Ida Crews on 11-02-2022 Basophils/100 WBC (Bld) 0.5 % 0-1 [facility] Eosinophils/100 WBC (Bld) 3.6 % 0-5 [facility] Neutrophils (Bld) [#/Vol] 4.7 10*3/uL 2.0-7.7 [facility] Neutrophils/100 WBC (Bld) 60.6 % 47-70 [facility] WBC (Bld) [#/Vol] 7.7 10*3/uL 4.4-11.0 [facility] Blood erythrocytes count (nu mber/volume)Ordered By: Ida Crews on 11-02-2022 RBC (Bld) [#/Vol] 4.45 10*6/uL 4.2-5.4 [facility] Blood hemoglobin measurement (mass/volume)Ordered By: Ida Crews on 11-02-2022 Hemoglobin (Bld) [Mass/Vol] 13.3 g/dL 12.0-15.0 [facility] Blood lymphocytes/100 leukoc ytesOrdered By: Ida Crews on 11-02-2022 Lymphocytes/100 WBC (Bld) 24.0 % 19-41 [facility] Blood monocytes/100 leukocyt esOrdered By: Ida Crews on 11-02-2022 Monocytes/100 WBC (Bld) 10.9 % 0-10 [facility] Blood platelet mean volumeOr dered By: Ida Crews on 11-02-2022 Platelet mean volume (Bld) [Entitic vol] 10.2 fL 6.2-12.0 [facility] Determination of erythrocyte mean corpuscular volume (MCV)Ordered By: Ida Crews on 11-02-2022 MCV (RBC) [Entitic vol] 94.4 fL 81-99 [facility] Hematocrit Auto (Bld) [Volum e fraction]Ordered By: Ida Crews on 11-02-2022 Hematocrit (Bld) [Volume fraction] 42.0 % 37-47 [facility] Laboratory - Hematology and Cell countsOrdered By: Ida Crews on 11-02-2022 Erythrocyte distribution width (RBC) [Entitic vol] 42.8 fL 35.1-43.9 [facility] Erythrocyte distribution width (RBC) [Ratio] 12.3 % 11.6-14.6 [facility] Immature granulocytes/100 WBC (Bld) 0.400 % 0.0-0.9 [facility] Comment on above: IG% - Immature Granu locytes (promyelocytes, myelocytes and metamyelocytes) > 1% indicates that a LEFT SHIFT is Present. MCH (RBC) [Entitic mass] 29.9 pg 27.0-32.0 [facility] Nucleated RBC/100 WBC (Bld) [Ratio] 0 % 0-5 [facility] MCHC Auto (RBC) [Mass/Vol]Or dered By: Ida Crews on 11-02-2022 MCHC (RBC) [Mass/Vol] 31.7 g/dL 32-36 [facility] Platelets bldOrdered By: Yamila Crews on 11-02-2022 Platelets (Bld) [#/Vol] 259 10*3/uL 150-450 [facility] Vital Signs Date Time Vital Sign Value Performing Clinician Facility 09-08-2024 09:25-0500 Diastolic Blood Pressure Non-Invasive 60 mm[Hg] DR DAMION TREJO MD [facility] 09-08-2024 09:25-0500 Heart rate 55 /min DR DAMION TREJO MD [facility] 09-08-2024 09:25-0500 Respiratory rate 15 /min DR DAMION TREJO MD [facility] 09-08-2024 09:25-0500 Systolic Blood Pressure Non-Invasive 137 mm[Hg] DR DAMION TREJO MD [facility] 09-08-2024 09:20-0500 Diastolic Blood Pressure Non-Invasive 119 mm[Hg] DR DAMION TREJO MD [facility] 09-08-2024 09:20-0500 Heart rate 56 /min DR DAMION TREJO MD [facility] 09-08-2024 09:20-0500 Respiratory rate 10 /min DR DAMION TREJO MD [facility] 09-08-2024 09:20-0500 Systolic Blood Pressure Non-Invasive 138 mm[Hg] DR DAMION TREJO MD [facility] 09-08-2024 09:15-0500 Diastolic Blood Pressure Non-Invasive 67 mm[Hg] DR DAMION TREJO MD [facility] 09-08-2024 09:15-0500 Heart rate 56 /min DR DAMION TREJO MD [facility] 09-08-2024 09:15-0500 Respiratory rate 15 /min DR DAMION TREJO MD [facility] 09-08-2024 09:15-0500 Systolic Blood Pressure Non-Invasive 165 mm[Hg] DR DAMION TREJO MD [facility] 09-08-2024 09:10-0500 Body temperature 97.52 [degF] DR DAMION TREJO MD [facility] 09-08-2024 09:10-0500 Respiratory Rate - Anes 0 br/min DR DAMION TREJO MD [facility] 09-08-2024 09:05-0500 Respiratory Rate - Anes 19 br/min DR DAMION TREJO MD [facility] 09-08-2024 09:00-0500 Respiratory Rate - Anes 21 br/min DR DAMION TREJO MD [facility] 09-08-2024 08:00-0500 Body height [address] DAMION TREJO MD [facility] 09-08-2024 08:00-0500 Body temperature 97.16 [degF] DR DAMION TREJO MD [facility] 09-08-2024 08:00-0500 Body weight 59.[address] DAMION TREJO MD [facility] 09-08-2024 08:00-0500 Body weight 21.97 kg/m2 DR DAMION TREJO MD [facility] 09-08-2024 08:00-0500 Heart rate 70 /min DR DAMION TREJO MD [facility] 10-02-2022 14:12-0500 Body height 166.37 cm HEALTHCARE NETWORK CONSULTANT-Jacquie Cadet HEALTHCARE NETWORK CONSULTANT Work Phone: [facility] 10-02-2022 14:12-0500 Body mass index (BMI) [Ratio] 21.1 kg/m2 HEALTHCARE NETWORK CONSULTANT-Jacquie Cadet HEALTHCARE NETWORK CONSULTANT Work Phone: [facility] 10-02-2022 14:12-0500 Body temperature 98.4 [degF] HEALTHCARE NETWORK CONSULTANT-Jacquie Cadet HEALTHCARE NETWORK CONSULTANT Work Phone: [facility] 10-02-2022 14:12-0500 Body weight 58.51 kg HEALTHCARE NETWORK CONSULTANT-Jacquie Cadet HEALTHCARE NETWORK CONSULTANT Work Phone: [facility] 10-02-2022 14:12-0500 Diastolic blood pressure 74 mm[Hg] HEALTHCARE NETWORK CONSULTANT-Jacquie Cadet HEALTHCARE NETWORK CONSULTANT Work Phone: [facility] 10-02-2022 14:12-0500 Heart rate 94 /min HEALTHCARE NETWORK CONSULTANT-Jacquie Cadet HEALTHCARE NETWORK CONSULTANT Work Phone: [facility] 10-02-2022 14:12-0500 Respiratory rate 18 /min HEALTHCARE NETWORK CONSULTANT-Jacquie Cadet HEALTHCARE NETWORK CONSULTANT Work Phone: [facility] 10-02-2022 14:12-0500 SaO2% (BldA) [Mass fraction] 99 % HEALTHCARE NETWORK CONSULTANT-C Sushma Cadet HEALTHCARE NETWORK CONSULTANT Work Phone: [facility] 10-02-2022 14:12-0500 Systolic blood pressure 136 mm[Hg] HEALTHCARE NETWORK CONSULTANT-C Sushma Cadet HEALTHCARE NETWORK CONSULTANT Work Phone: [facility] Encounters Encounter Date Encounter Type Care Provider Facility Start: 06-29-2025 ambulatory Sushma Cadet NP Fa cility:[facility] Start: 06-12-2025 Encounter for genera l adult medical examination without abnormal findings Sushma Cadet NP [facility] Start: 06-12-2025 ambulatory Sushma Cadet NP Fa cility:[facility] Start: 06-08-2025 End: 06-12-2025 ambulatory SUSHMA CADET STATOR W[employer]SKILLED LABORER Facility:[facility] Start: 06-08-2025 End: 06-12-2025 Outreach Lab SUSHMA CADET STATOR WINDER-SKILLED LABORER [facility] Start: 09-08-2024 End: 09-08-[address] DAMION TREJO MD Facility:[facility] Start: 09-08-2024 End: 09-08-[address] DAMION TREJO MD [facility] Start: 11-02-2022 End: 11-02-2022 ambulatory HEALTHCARE NETWORK CONSULTANT-Jacquie Cadet HEALTHCARE NETWORK CONSULTANT Work Phone: [facility] Work Phone: Start: 11-02-2022 End: 11-02-2022 Patient encounter procedure HEALTHCARE NETWORK CONSULTANT-Jacquie Cadet HEALTHCARE NETWORK CONSULTANT Work Phone: [facility] Start: 10-02-2022 End: 10-02-2022 Patient encounter procedure HEALTHCARE NETWORK CONSULTANT-Jacquie Cadet HEALTHCARE NETWORK CONSULTANT Work Phone: [facility] Procedures Date Procedure Procedure Detail Performing Clinician Colonoscopy normal (finding) DR DAMION TREJO MD Immunizations Immunization Date Immunization Notes Care Provider Fa kimty 01-09-2021 SARS-CoV-2 (COVID-19 ) mRNA-[address] DAMION TREJO MD [facility] Comment on above: Result Comment: 2023: [id number] 12-12-2020 SARS-CoV-2 (COVID-19 ) mRNA-[address] DAMION TREJO MD [facility] Comment on above: Result Comment: 2023: [id number] 07-12-2020 influenza virus vaccine, unspecified formulation DR DAMION TREJO MD [facility] 09-27-[address] DAMION TREJO MD [facility] 07-16-2015 tetanus toxoid, redu olinda diphtheria toxoid, and acellular pertussis vaccine, adsorbed DR DAMION TREJO MD [facility] 07-28-2013 influenza virus vaccine, unspecified formulation DR DAMION TREJO MD [facility] Payers Date Payer Category Payer Self-pay [id number] 2025 Private Health Insurance [id number] 2024 Private Health Insurance [id number] 1960 Unknown [id number] 1960 Unknown [id number] Unknown [facility] [id number] Unknown [id number] Unknown [id number] Social History Date Type Detail Facility [facility]: [facility]02-[facility]22 [facility] Start: 1960 Sex Assigned At Female W [facility] Start: 08-09-2019 Tobacco smoking status Never s moked tobacco (finding) [facility] Sex Assigned At [facility] Start: 06-27-2014 Sex Female (finding) [facility] Functional Status Date Assessment Result Facility 09-08-2024 Functional Status Repositions self [facility] Mental Status Date Assessment Result Facility 09-08-2024 Mental Status Orientation Asse ssment Oriented x 4 [facility] Clinical Notes 09-08-2024 to 06-08-2025 LaboratoryRadiology Note Date & Type Note Facility 06-08-2025 Evaluation + Plan note Future Scheduled TestsThyroid Stimulating Hormone 06/08/25Free T4 06/08/25A1C Hemoglobin 06/08/25Complete Blood Count 06/08/25Lipid Profile 06/08/25Complete Metabolic Panel 06/08/25MA Mammo Screening Bilateral w/ Ernesto 06/08/25 [facility] 09-08-2024 Evaluation + Plan note Extrac earline from: Title:Clinical Document Author:DAMION TREJO Date:09/08/24 [place] ADMISSION HISTORY AN D PHYSICIAL CHIEF COMPLAINT: HISTORY OF PRESENT ILLNESS: REVIEW OF SYSTEMS: ACTIVE PROBLEMS: (5) Allergies (0609877908) Osteoporosis screening (582457479) Screening for breast cancer (723674485) Screening for colon cancer (926552010) Well adult exam (419599601) MEDICATIONS: Active Inpt Meds: None Active PRN Meds: None One Time Meds: None Active IV Meds: None ALLERGIES: (1) NKA FAMILY HISTORY: SOCIAL HISTORY: PHYSICAL EXAM: VITALS: [id number](kg) 09/08 08:0036.2--[id number]/13 59.1 24 Hr Tmax: 36.2 at 09/08 08:00 36 Hr Tmax: 36.2 at 09/08 08:00 Vital Signs are the last 5 in the past 48 hours. Weights display the last 5 within 7 days. Initial Wt: 09/08 59.1 kg 130 lb Current Wt: 09/08 59.1 kg 130 lb GENERAL: HEENT: CARDIOVASCULAR: RESPIRATORY: ABDOMEN: EXREMETIES: NEUROLOGICAL: PSYCHIATRIC: LABS: No 36hr Lab Data DIAGNOSTICS: IMPRESSION: PLAN: History and Physical Update I have examined the patient; reviewed the H&P and there are no changes to the H&P unless noted below. Future Appointments Appointment Date:09/11/2024 09:00:00 AM Scheduled Provider:SUSHMA CADET Location:[facility] Appointment Type:PC OV Future Scheduled Tests Laboratory* Complete Blood Count 05/08/24 * Lipid Profile 05/08/24 * Complete Metabolic Panel 05/08/24 [facility] 12-13-2024 Hospital Discharge instructions Patient Education 09/08/2024 09:18:35 Colonoscopy, Adult, Care After Colonoscopy, Adult, Care After This sheet gives you information about how to care for yourself after your procedure. Your health care provider may also give you more specific instructions. If you have problems or questions, contact your health care provider. What can I expect after the procedure? After the procedure, it is common to have: A small amount of blood in your stool for 24 hours after the procedure. Some gas. Mild abdominal cramping or bloating. Follow these instructions at home: General instructions For the first 24 hours after the procedure: ?Do not drive or use machinery. ?Do not sign important documents. ?Do not drink alcohol. ?Do your regular daily activities at a slower pace than normal. ?Eat soft, oimg-ew-kdbyrr foods. Take zkbl-pav-ggutnkt or prescription medicines only as told by your health care provider. Relieving cramping and bloating Try walking around when you have cramps or feel bloated. Apply heat to your abdomen as told by your health care provider. Use a heat source that your healthcare provider recommends, such as a moist heat pack or a heating pad. ?Place a towel between your skin and the heat source. ?Leave the heat on for 20 30 minutes. ?Remove the heat if your skin turns bright red. This is especially important if you are unable to feel pain, heat, or cold. You may have a greater risk of getting burned. Eating and drinking Drink enough fluid to keep your urine pale yellow. Resume your normal diet as instructed by your health care provider. Avoid heavy or fried foods thatare hard to digest. Avoid drinking alcohol for as long as instructed by your health care provider. Contact a health care provider if: You have blood in your stool 2 3 days after the procedure. Get help right away if: You have more than a small spotting of blood in your stool. You pass large blood clots in your stool. Your abdomen is swollen. You have nausea or vomiting. You have a fever. You have increasing abdominal pain that is not relieved with medicine. Summary After the procedure, it is common to have a small amount of blood in your stool. You may also have mild abdominal cramping and bloating. For the first 24 hours after the procedure, do not drive or use machinery, sign important documents, or drink alcohol. Contact your health care provider if you have a lot of blood in your stool, nausea or vomiting, a fever, or increased abdominal pain. This information is not intended to replace advice given to you by your health care provider. Make sure you discuss any questions you have with your health care provider. Document Released: 04/27/2005 Document Revised: 07/06/2018 Document Reviewed: 11/24/2016 [employer] Patient Education 2020 [employer]. 09/08/2024 09:18:34 Monitored Anesthesia Care, Care After Monitored Anesthesia Care, Care After These instructions provide you with information about caring for yourself after your procedure. Your health care provider may also give you more specific instructions. Your treatment has been plannedaccording to current medical practices, but problems sometimes occur. Call your health care provider if you have any problems or questions after your procedure. What can I expect after the procedure? After your procedure, you may: Feel sleepy for several hours. Feel clumsy and have poor balance for several hours. Feel forgetful about what happened after the procedure. Have poor judgment for several hours. Feel nauseous or vomit. Have a sore throat if you had a breathing tube during the procedure. Follow these instructions at home: For at least 24 hours after the procedure: Have a responsible adult stay with you. It is important to have someone help care for you until youare awake and alert. Rest as needed. Do not: ?Participate in activities in which you could fall or become injured. ?Drive. ?Use heavy machinery. ?Drink alcohol. ?Take sleeping pills or medicines that cause drowsiness. ?Make important decisions or sign legal documents. ?Take care of children on your own. Eating and drinking Follow the diet that is recommended by your health care provider. If you vomit, drink water, juice, or soup when you can drink without vomiting. Make sure you have little or no nausea before eating solid foods. General instructions Take into-phi-aglumrz and prescription medicines only as told by your health care provider. If you have sleep apnea, surgery and certain medicines can increase your risk for breathing problems. Follow instructions from your health care provider about wearing your sleep device: ?Anytime you are sleeping, including during daytime naps. ?While taking prescription pain medicines, sleeping medicines, or medicines that make you drowsy. If you smoke, do not smoke without supervision. Keep all follow-up visits as told by your health care provider. This is important. Contact a health care provider if: You keep feeling nauseous or you keep vomiting. You feel light-headed. You develop a rash. You have a fever. Get help right away if: You have trouble breathing. Summary For several hours after your procedure, you may feel sleepy and have poor judgment. Have a responsible adult stay with you for at least 24 hours or until you are awake and alert. This information is not intended to replace advice given to you by your health care provider. Make sure you discuss any questions you have with your health care provider. Document Released: 01/03/2017 Document Revised: 12/12/2018 Document Reviewed: 01/03/2017 [employer] Patient Education 2020 [employer]. Follow Up Care 08/11/2024 08:10:40 With:DAMION TREJO [facility] [address] [phone] Business (1) When: Unknown Comments:Follow-up with Primary Care Physician [facility] 12-13-2024 Summary of episode note Discharge Instructions Thank you for allowing [facility] to assist you with your healthcare needs. The following is importantdischarge information regarding your hospital visit. Your Care Team SUSHMA CADET What to do next Scheduled Follow-Up Appointments Appointment Type [facility]00 AM EST SUSHMA CADET [facility] [address] [place] [address] Confirmed Follow Up Appointments Follow Up with DAMION TREJO Where:[address] [facility] [address] [place] [address]- [phone] [facility] (1) Additional Information: Follow-up with Primary Care Physician The Following Activity and Diet Have Been Ordered for You Discharge Activity - Ordered -- NO activity restrictions, 09/08/24 9:08:00 EST Discharge Diet - Ordered -- Follow the post-operative/post-procedure diet instructions provided by your physician's office.,09/08/24 9:08:00 EST The Following Equipment Has Been Ordered for You Discharge Home Equipment Discharge Wound Care - Ordered -- Follow the post-operative/post-procedure wound care instructions provided by your physician's office., 09/08/24 9:08:00 EST Allergies NKA Medications Please ask your primary doctor or pharmacist before taking any other medication not listed, including over the counter drugs, herbal medications, vitamins and or supplements as they may interact withyour home medications. What How Much When Instructions Last Dose Unchanged multivitamin (Multivitamin) 1 tab(s) by mouth Every day Please take this list to your next doctor s visit. Bring all medications you take, including over the counter medications, herbals and other supplements with you to your doctor s visit. Patients and families are reminded to discard old lists and to update any records with all medication providers or retail pharmacies. Education Materials Colonoscopy, Adult, Care After This sheet gives you information about how to care for yourself after your procedure. Your health care provider may also give you more specific instructions. If you have problems or questions, contact your health care provider. What can I expect after the procedure? After the procedure, it is common to have: A small amount of blood in your stool for 24 hours after the procedure. Some gas. Mild abdominal cramping or bloating. Follow these instructions at home: General instructions For the first 24 hours after the procedure: ? Do not drive or use machinery. ? Do not sign important documents. ? Do not drink alcohol. ? Do your regular daily activities at a slower pace than normal. ? Eat soft, ssbq-wp-jyqcqt foods. Take qhzf-hmu-juvibij or prescription medicines only as told by your health care provider. Relieving cramping and bloating Try walking around when you have cramps or feel bloated. Apply heat to your abdomen as told by your health care provider. Use a heat source that your healthcare provider recommends, such as a moist heat pack or a heating pad. ? Place a towel between your skin and the heat source. ? Leave the heat on for 20 30 minutes. ? Remove the heat if your skin turns bright red. This is especially important if you are unable to feel pain, heat, or cold. You may have a greater risk of getting burned. Eating and drinking Drink enough fluid to keep your urine pale yellow. Resume your normal diet as instructed by your health care provider. Avoid heavy or fried foods thatare hard to digest. Avoid drinking alcohol for as long as instructed by your health care provider. Contact a health care provider if: You have blood in your stool 2 3 days after the procedure. Get help right away if: You have more than a small spotting of blood in your stool. You pass large blood clots in your stool. Your abdomen is swollen. You have nausea or vomiting. You have a fever. You have increasing abdominal pain that is not relieved with medicine. Summary After the procedure, it is common to have a small amount of blood in your stool. You may also have mild abdominal cramping and bloating. For the first 24 hours after the procedure, do not drive or use machinery, sign important documents, or drink alcohol. Contact your health care provider if you have a lot of blood in your stool, nausea or vomiting, a fever, or increased abdominal pain. This information is not intended to replace advice given to you by your health care provider. Make sure you discuss any questions you have with your health care provider. Document Released: 04/27/2005 Document Revised: 07/06/2018 Document Reviewed: 11/24/2016 [employer] Patient Education 2020 [employer]. Monitored Anesthesia Care, Care After These instructions provide you with information about caring for yourself after your procedure. Your health care provider may also give you more specific instructions. Your treatment has been plannedaccording to current medical practices, but problems sometimes occur. Call your health care provider if you have any problems or questions after your procedure. What can I expect after the procedure? After your procedure, you may: Feel sleepy for several hours. Feel clumsy and have poor balance for several hours. Feel forgetful about what happened after the procedure. Have poor judgment for several hours. Feel nauseous or vomit. Have a sore throat if you had a breathing tube during the procedure. Follow these instructions at home: For at least 24 hours after the procedure: Have a responsible adult stay with you. It is important to have someone help care for you until youare awake and alert. Rest as needed. Do not: ? Participate in activities in which you could fall or become injured. ? Drive. ? Use heavy machinery. ? Drink alcohol. ? Take sleeping pills or medicines that cause drowsiness. ? Make important decisions or sign legal documents. ? Take care of children on your own. Eating and drinking Follow the diet that is recommended by your health care provider. If you vomit, drink water, juice, or soup when you can drink without vomiting. Make sure you have little or no nausea before eating solid foods. General instructions Take gvaa-nba-pgcaahs and prescription medicines only as told by your health care provider. If you have sleep apnea, surgery and certain medicines can increase your risk for breathing problems. Follow instructions from your health care provider about wearing your sleep device: ? Anytime you are sleeping, including during daytime naps. ? While taking prescription pain medicines, sleeping medicines, or medicines that make you drowsy. If you smoke, do not smoke without supervision. Keep all follow-up visits as told by your health care provider. This is important. Contact a health care provider if: You keep feeling nauseous or you keep vomiting. You feel light-headed. You develop a rash. You have a fever. Get help right away if: You have trouble breathing. Summary For several hours after your procedure, you may feel sleepy and have poor judgment. Have a responsible adult stay with you for at least 24 hours or until you are awake and alert. This information is not intended to replace advice given to you by your health care provider. Make sure you discuss any questions you have with your health care provider. Document Released: 01/03/2017 Document Revised: 12/12/2018 Document Reviewed: 01/03/2017 Elsevier Patient Education 2020 [employer] Additional Information VACCINATE! IT SAVES LIVES! Members of the community who have not yet received the COVID-19 vaccine and would like to receive it can visit one of [facility] vaccine clinics. There are many vaccine clinic locations within the [facility]. For locations and available times, please visit https://gettheshot.coronavirus.[place].gov/. It is important to note that some COVID mobile vaccine clinics are held outdoors and may be canceled in rainy or stormy conditions. To learn more about pediatric vaccinations (ages 5-11), we invite you to visit the [facility] webpage. https://www.[employer].org/pages/0628-Spxkd-Eamiazxezak-Mugljpjcgz-Utadp-Wkk stions.htmlTo learn more about the COVID-19 vaccine, we invite you to visit the CDC website for a list of frequently asked questions.https://www.cdc.gov/coronavirus/2019-ncov/vaccines/faq.html [employer] Patient Portal Access Instructions: Stay connected with your healthcare team and access your personal medical information anytime with the [employer] Patient Portal. Please follow the directions below to create your [employer] account: 1.Access the email account you provided upon registration to the hospital/physician office.2.Look for an invitation email from [facility].3.Open the email and access the invitation link: AcceptInvitation to [facility].4.Fill in the required lindsey to create your account. To access your account, visit [employer]. Click the blue button labeled Access Patient Portal and then log in with the username and password that you created in the steps above. You will be able to view your test results, lab results, a summary of your visits, upcoming appointments and more. There is also a convenient messaging option where you can send secure messages to your p rovider. In addition, you will have the ability to download any documents or summaries to your computer and/or send the information securely to a physician. Remember that your healthcare information is confidential, so carefully consider who you will allowto register on the [facility] for access to your information. You can also access the [facility] on the [employer] curt. Simply click on Patient Portal and then log into your account. If you would like to receive a full copy of your medical records, please contact the [facility] Medical Records Department by calling [phone], Wednesday through Wednesday between 8 a.m. and 4:30 p.m. HOW TO SAFELY DISPOSE OF PRESCRIPTION MEDICATIONS Please use one of the following methods to safely dispose of your unused medications. 1.Use a drug disposal kit: the drug disposal pouch allows you to safely discard your old and unuseddrugs. Ask your nurse to give you one when you are discharged.2.Visit a local take-back location: Many local pharmacies and police departments have programs that collect old and unwanted prescriptiondrugs. Call your local pharmacy or go to http://Unique Property/5V4Na7v to find one close to you.3.Make use of household items: Use cat litter or old coffee grounds to dispose medications if other options arenot available. Mix your drugs with these household products, seal them in an airtight container andthrow it into the garbage. Call [facility]: [phone] to be sure your drugs can be disposed of in this way. Some medicines may require a different approach.4.Never flush your medications down the toilet. IF YOU HAVE BEEN PRESCRIBED AN OPIOID FOR PAIN If you have been prescribed an opioid (such as hydrocodone, oxycodone or morphine), it is critical to understand the possible side effects and risks of opioid pain medications. Even when taken as directed, opioids can have several side effects including: Tolerance, meaning you might need to take more of a medication for the same pain relief. Nausea, vomiting and/or constipation. Sleepiness, dizziness, dry mouth, confusion, depression or itching. Physical dependence, meaning you have withdrawal symptoms when a medication is stopped, can develop within a few days. KNOW YOUR RESPONSIBILITIES It is important to know exactly how much and how often to take the opioid pain medications you are prescribed. Never take opioids in higher amounts or more often than prescribed. Do not combine opioids with alcohol or other drugs that cause drowsiness, such as benzodiazepines, also known as benzos, including diazepam and alprazolam, muscle relaxants or sleep aids. Never sell or share prescription opioids. This is illegal. Store opioids in a secure place and out of reach of others (including children, family, friends and visitors). The last page of this document has been signed and retained as a CHART COPY. Signatures Patient Education Materials Colonoscopy, Adult, Care After Monitored Anesthesia Care, Care After Medication Leaflets My discharge plan and instructions have been reviewed and explained to me and I,CLARISA REDDY understand my current condition and have read and understand these discharge instructions. I have received a written copy of the plan/instructions. If I have questions, I am aware that I should contact my doctor. Patient/Body Corporate Manager Signature: Date/Time: Relationship to Patient: Witness Name/Signature: Date/Time: [facility]12-13-2024 Note Date of Service 09/08/2024 Procedure Name Screening colonoscopy Consent Taken before procedure Indication Screening colonoscopy Location [facility] Pre-Procedure Exam Screening colonoscopy Procedural Sedation Anesthesia provided a MAC Technique Patient was brought to the endoscopy suite and placed left shoulder down. The colonoscope was passed into the rectum and advanced up to the left colon. There was redundancy to the left colon. The colonoscope was advanced to the cecum without difficulty base the cecum was photographed the patient had an excellent preparation the terminal ileum was intubated there was normal. There was good visualization throughout the right colon there were no obvious large polyps seen back across the transversecolon mucosa the mucosa was normal, splenic flexure down to the left colon there were no obvious large polyps seen. Down to the sigmoid colon and rectum mucosa was unremarkable retroflexion performedin the rectum revealed internal hemorrhoids. Colon was decompressed and the patient tolerated procedure well. Post-Procedure Exam Screening colonoscopy Findings Normal exam Complications None apparent Assessment/Plan Orders: Bedrest, 09/08/24 9:08:00 EST, Strict, continuous, Constant order, Lying on side until alert or as ordered Bedrest, 09/08/24 9:08:00 EST, Strict, continuous, Constant order, Lying on side until alert or as ordered Call Parameters, 09/08/24 9:08:00 EST, Notify for vomiting, severe pain, signs of bleeding, severe abdominal pain, distention or rigidity, Constant order Diet Order, 09/08/24 9:08:00 EST, Start Meal: Next meal, Clear Liquid Diet, Post exam or after gag reflex returns if EGD, Constant Order, : No, per patient, : No Discharge Activity, NO activity restrictions, 09/08/24 9:08:00 EST Discharge Diet, Follow the post-operative/post-procedure diet instructions provided by your physician's office., 09/08/24 9:08:00 EST Discharge Wound Care, Follow the post-operative/post-procedure wound care instructions provided by your physician's office., 09/08/24 9:08:00 EST IV Catheter Insertion/Care, 09/08/24 7:58:00 EST, IV Care: q4h, Rotate when clinically indicated & q7day drsg change Post Procedure Assessment, 09/08/24 9:08:00 EST, Stop Date 09/08/24 9:08:00 EST, [facility] in [facility] Recovery Room until Zaria Score of 12 or Preprocedure Vital Signs, 09/08/24 9:08:00 EST, q15min, 1 hour(s), 09/08/24 10:00:00 EST Vital Signs, 09/08/24 9:08:00 EST, q30min, 1 hour(s), 09/08/24 10:00:00 EST Vital Signs PRN, 09/08/24 9:08:00 EST, PRN order Follow Up/Recommendation Repeat a colonoscopy in 10 years Digitally Signed by DAMION TREJO MD on 09/08/2024 09:12 AM [facility]12-13-2024 Anesthesiology Consult note Patient: CLARISA REDDY Age: 64 years Sex: Female : 1960 Associated Diagnoses: None Author: TOMMY LEO Assessment Postanesthesia assessment Mental status: alert & oriented x 4. Respiratory function: lungs are clear to auscultation. Respiratory support: none. CV function: Normal rate. Cardiovascular support: none. Pain. Nausea status: denies nausea. Postoperative hydration status: within normal limits. Digitally Signed by TOMMY LEO on 09/08/2024 09:12 AM [facility]12-13-2024 Note [place] ADMISSION HISTORY AND PHYSICIAL CHIEF COMPLAINT: HISTORY OF PRESENT ILLNESS: REVIEW OF SYSTEMS: ACTIVE PROBLEMS: (5) Allergies (7800205023) Osteoporosis screening (265397416) Screening for breast cancer (587312314) Screening for colon cancer (021699582) Well adult exam (806426599) MEDICATIONS: Active Inpt Meds: None Active PRN Meds: None One Time Meds: None Active IV Meds: None ALLERGIES: (1) NKA FAMILY HISTORY: SOCIAL HISTORY: PHYSICAL EXAM: VITALS: EhguyiAtkvAHOzopuOMMkS5CXG1AfmqTl(kg) 09/08 08:0036.2--630001XB74/13 59.1 24 Hr Tmax: 36.2 at 09/08 08:00 36 Hr Tmax: 36.2 at 09/08 08:00 Vital Signs are the last 5 in the past 48 hours. Weights display the last 5 within 7 days. Initial Wt: 09/08 59.1 kg 130 lb Current Wt: 09/08 59.1 kg 130 lb GENERAL: HEENT: CARDIOVASCULAR: RESPIRATORY: ABDOMEN: EXREMETIES: NEUROLOGICAL: PSYCHIATRIC: LABS: No 36hr Lab Data DIAGNOSTICS: IMPRESSION: PLAN: History and Physical Update I have examined the patient; reviewed the H&P and there are no changes to the H&P unless noted below. Digitally Signed by DAMION TREJO MD on 09/08/2024 08:55 AM [facility]12-13-2024 Anesthesiology Consult note Patient: CLARISA REDDY Age: 64 years Sex: Female : 1960 Associated Diagnoses: None Author: TOMMY LEO Preoperative Information Time of last food or liquid consumption: 09/08/2024 06:00:00 Anesthesia history Patient's history: negative. Family's history: negative. Review of Systems Ear/Nose/Mouth/Throat: Negative. Respiratory: Negative. Cardiovascular: Negative. Gastrointestinal: Negative. Genitourinary: Negative. Endocrine: Negative. Musculoskeletal: Negative. Integumentary: Negative. Neurologic: Negative. Health Status Allergies: Allergic Reactions (Selected) NKA, Allergies (1) ActiveSeverityReaction NKANone Documented Current medications: (Selected) Documented Medications Documented Multivitamin: 1 tab(s), Oral, Daily, 0 Refill(s), No qualifying data available Problem list: Medical Allergies / SNOMED CT 6470763367 / Confirmed Screening for breast cancer / SNOMED CT 659907821 / Confirmed Well adult exam / SNOMED CT 824492975 / Confirmed Osteoporosis screening / SNOMED CT 072952641 / Confirmed Screening for colon cancer / SNOMED CT 282124817 / Confirmed, Active Problems (5) Allergies Osteoporosis screening Screening for breast cancer Screening for colon cancer Well adult exam Histories Past Medical History: Resolved Healthy adult (080280133): Resolved. Family History: Cancer Mother Father Sister Grandparent Diabetes mellitus Brother Hypertension Mother Father Brother Sister Grandparent Heart disease Father Brother Mother Arthritis Mother Grandparent Stroke Father Hypercholesterolemia Mother Father Brother Sister Hyperlipidemia Father Leukemia Father Cancer Sister HTN - Hypertension Mother Father Diabetes Father Brother Grandparent Procedure history: Colonoscopy normal (867562925). Social History: Social & Psychosocial Habits Alcohol 09/08/2024 Use: Never Substance Abuse 09/08/2024 Use: Never Tobacco 09/08/2024 Tobacco Use: Never (less than 100 in l Nutrition/Health 09/08/2024 Caffeine intake amount: none Physical Examination Vital Signs 09/08/2024 8:00 EST Temperature Temporal Artery 36.2 DegC Peripheral Pulse Rate 70 bpm Respiratory Rate 12 br/min LOW Systolic Blood Pressure Non-Invasive 119 mmHg Diastolic Blood Pressure Non-Invasive 45 mmHg Vital Signs (last 24 hrs) Last Charted Temp Ixbamabn06.2 DegC (SEP 08 08:) POE446 mmHg (SEP 08 08:) DBPC 45mmHg (SEP 08 08:) BMI21.97 (SEP 08:) Measurements from flowsheet : Measurements 09/08/2024 8:00 EST Height 164 cm Admission Weight 59.1 kg Weight Method Stated [place] Body Weight 56.00 kg BSA Admission 1.64 Body Mass Index 21.97 kg/m2 Pain assessment: Pain Assessment 09/08/2024 8:00 EST Primary Pain Intensity 0 Pain Scale Type 0-10 Pain scale . General: Alert and oriented. Airway: Normal temporomandibular joint mobility. Mallampati classification: II (soft palate, fauces, uvula visible). Head: Atraumatic. Dentition Evaluation: Own teeth. Neck: Supple. Respiratory: Lungs are clear to auscultation. Cardiovascular: Normal rate. Heart Sounds: Normal. Gastrointestinal: Soft. Musculoskeletal Normal range of motion. Integumentary: Intact. Neurologic: Alert, Oriented. Review / Management Results review: No qualifying data available , Lab results 09/08/2024 8:02 EST Urinary Elimination Voiding, no difficulties IV Present Present Allergies Yes Anesthesia Extension Set Applied Yes Colon Prep Results Excellent Patient Dressed In Hospital gown, No undergarments Pre-op Preparation Glasses removed, Undergarments removed History & Physical Update On Chart Yes History & Physical On Chart Yes Bowel Prep Completed Yes Patient ID Band on and Verified Yes Implants Verified Yes Pacemaker/AICD Verified Yes Site Verified by Patient/Family Yes Last Fluid Intake 09/08/2024 7:00 Last Food Intake 09/07/2024 8:03 Last Void 09/08/2024 6:00 09/08/2024 8:00 EST Designated Person #1 We May Share ASYA [phone] Designated Person #1 Relationship Spouse Privacy Restrictions Requested None Height 164 cm Admission Weight 59.1 kg Weight Method Stated [place] Body Weight 56.00 kg BSA Admission 1.64 Body Mass Index 21.97 kg/m2 Temperature Temporal Artery 36.2 DegC Peripheral Pulse Rate 70 bpm Respiratory Rate 12 br/min LOW Systolic Blood Pressure Non-Invasive 119 mmHg Diastolic Blood Pressure Non-Invasive 45 mmHg Primary Pain Intensity 0 Pain Scale Type 0-10 Pain scale Heart Rhythm Regular Respirations Unlabored Respiratory Pattern Regular Oxygen Therapy Room air Oxygen Saturation 98 % Abdomen Description Non-distended, Soft Abdomen Palpation Non-Tender, Soft Bowel Sounds All Quadrants Present Status No, per patient Skin Temperature Warm Skin Description [place], Normal for ethnicity, Dry Skin Integrity Intact Neurological Symptoms Patient denies Sensory Deficits None Infectious Disease Symptoms Patient states no symptoms Infectious Disease Recent Exposure No Alcohol and Drug Use No Employee of Institutional Living No Health Care Employee No History of Exposure to TB No History of Positive Chest X-Ray for TB No History of Positive TB Skin Test No Homeless No Known Immunosuppression No Recent Immigrant No Resident of Institutional Living No Bloody Sputum No Fatigue No Fever No Loss of Appetite No Night Sweats No Persistent Cough > 3 Weeks No Weight Loss No Barriers to Learning None evident Teaching Method Printed materials Preferred Spoken Language Jamaican Preferred Written Language Jamaican Patient's Current Physicians DR. ISMA CAZARES Discharge To, Anticipated Home independently Assistive Device None Positioning Repositions self Activity Status ADL Awake, Resting Standard Safety ID band on, Call device within reach, Bed in low position, Wheels locked, Visitor at bedside Prev Test Positive/Diagnosis w/COVID-19 No Current Quarantine/Isolated any Illness No Any Contact with Sick Animals/Birds No Traveled Anywhere in Last 30 Days No No Personal Devices, Patient Valuables Contact lenses Admission Note-Nursing Procedure/Therapy Intake . Assessment and Plan [employer] [employer] Anesthesi[employer] (ASA) physical status classification: Class I. Anesthetic Preoperative Plan Anesthetic technique: MAC. Postoperative pain management: Per surgeon. Informed consent: signed by patient. Digitally Signed by TOMMY LEO on 09/08/2024 08:15 [facility] Diagnosis Onset Date Resolution Status Acute bronchitis acute [facility] Work Phone: Hospital course Narrative No data available for this section [facility] Hospital Discharge instructions No data available for this section [facility] Progress note No data available for this section [facility] Chief Complaint and Reason for Visit Chief Complaint COUGH, CONGESTED FAT IGUE E ORDER Reason for Visit Acute bronchitis Family History No Family History Records Found Relationship Condition Age at Onset Recorded Date/T krysta mother Cardiac disease Unknown Hypertension Unknown Disorder of thyroid Unknown father Hypertension Unknown Cardiac disease Unknown Diabetes mellitus Unknown Leukemia Unknown Hyperlipidemia Unknown grandmother Malignant neoplasm Unknown grandfather Diabetes mellitus Unknown Summary Purpose Advance Directives No Advanced Directives Records FoundNo Advanced Directives Records Found Additional Source Comments Care Teams (unrecognized sec tion and content) Team Status: Active Member Role Status Dates Shivani Dugan HEALTHCARE NETWORK CONSULTANT, HEALTHCARE NETWORK CONSULTANT-C Family Provider Active Sushma Cadet HEALTHCARE NETWORK CONSULTANT, HEALTHCARE NETWORK CONSULTANT-C Primary Care Provider Activ e Team Status: Inactive Member Role Status Dates Sushma Cadet HEALTHCARE NETWORK CONSULTANT, HEALTHCARE NETWORK CONSULTANT-C Primary Care Provider, Refe rring Provider Active Feliciano MUHAMMAD, PA Attending Provider Active Team Status: Inactive Member Role Status Dates Sushma Cadet HEALTHCARE NETWORK CONSULTANT, HEALTHCARE NETWORK CONSULTANT-C Primary Care Provider Activ e Ida Crews HEALTHCARE NETWORK CONSULTANT, HEALTHCARE NETWORK CONSULTANT-C Attending Provider, Referring Pro vider Active Goals (unrecognized section and content) Goals may be documented in a n alternate section No data available for this section No data available for this section INFORMATION SOURCE (unrecogn ized section and content) DATE CREATED AUTHOR 06/15/2025 [facility] DATE CREATED AUTHOR AUTHOR'S ORGANIZ ATION 06/19/2025 [facility] FOR RECORDS PERTAINING TO PATIENTS WHO ARE OR HAVE BEEN ENROLLED IN A CHEMICAL DEPENDENCY/SUBSTANCEABUSE PROGRAM, SOME INFORMATION MAY BE OMITTED. This clinical summary was aggregated from multiple sources. Caution should be exercised in using it in the provision of clinical care. This summary normalizes information from multiple sources, and as a consequence, information in this document may materially change the coding, format and clinical context of patient data. In addition, data may be omitted in some cases. CLINICAL DECISIONS SHOULD BE BASED ON THE PRIMARY CLINICAL RECORDS. [employer] provides no warranty or guarantee of the accuracy or completeness of information in this document.
== END | disposition home or self-care (01) ==
LOC: OPBI 07:02
PROVIDERS: PCP Registered Nurse; Referring Provider Registered Nurse; Visit Provider Registered Nurse
DX: Z12.31 Encounter for screening mammogram for malignant neoplasm of breast (principal)
CPT/HCPCS: 77063; 77067

== ENCOUNTER → 2025-07-03 | Outpatient (CLI) | payer OTHER, SELFPAY ==
[2025-07-03 10:08] LABS: Hematocrit 41.2 % (37-47); Hemoglobin 13.8 g/dL (12.0-15.0); Mean Corp Hgb Conc 33.5 g/dL (32-36); Mean Corpuscular Volume 91.4 fL (81-99); Mean Platelet Vol. 10.2 fl (6.2-12.0); Platelet Count 263 K/mm3 (150-450); RBC Distribution Width CV 12.0 % (11.6-14.6); RBC Distribution Width SD 40.2 fl (35.1-43.9); Red Blood Count 4.51 M/mm3 (4.2-5.4); White Blood Count 3.8 K/mm3 (4.4-11.0)
[2025-07-03 10:28] LABS: AST(SGOT) 21 U/L (<=31); Alanine Aminotransfer ALT/SGPT 16 U/L (<=34); Albumin, Serum 4.3 g/dL (3.4-4.8); Alkaline Phosphatase 54 U/L (35-104); Anion Gap 12 (5-15); BUN 21 mg/dL (4-19); BUN/Creat Ratio 26.7 RATIO (10-20); Calcium,Total 9.7 mg/dL (7.6-11.0); Carbon Dioxide 23.5 mmol/L (21.0-32.0); Chloride 104 mmol/L (98-108); Cholesterol 244 mg/dL (<=200); Globulin 2.9 g/dL (2.2-4.2); Glucose 92 mg/dL (70-99); Low Density Lipoprotein Calc. 155 mg/dL; Potassium 4.1 mmol/L (3.3-5.1); Triglycerides 94 mg/dL; Very Low Density Lipoprotein 19 mg/dL (5-40); cholesterol:hdl ratio screen 3.49
== END | disposition home or self-care (01) ==
LOC: MTLAB 07:19
PROVIDERS: PCP Registered Nurse; Referring Provider Registered Nurse; Visit Provider Registered Nurse
DX: Z00.00 Encounter for general adult medical examination without abnormal findings (principal); Z13.1 Encounter for screening for diabetes mellitus; Z13.29 Encounter for screening for other suspected endocrine disorder; R53.83 Other fatigue
CPT/HCPCS: 36415; 80053; 80061; 83036; 84439; 84443; 85027

== ENCOUNTER → 2025-08-14 | Outpatient (CLI) | payer OTHER, SELFPAY ==
--- OUTSIDE RECORDS SUMMARY | 2025-08-14 07:06 | XMS RPT_ITS | CCD ---
Author Organization [facility] Inform ion Partnership [facility] Care Team Providers Care Exchange Clerk Name Role Phone Kosta RHOADES, VALUE ANALYST-C Sushma Primary Care Provider Kosta RHOADES NP-C Sushma Referring Provider [phone] JB Braun Attending Provider [phone] KOSTA BAIN-WOUND CARE NURSE, SUSHMA Alcantara Primary Care Physi abhijeet MAYA LAZO, DR BRUNO Attending Lambert e KOSTA BRUNER-SUZI, SUSHMA Alcantara Primary Care Un available KOSTA BRUNER-WOUND CARE NURSE, SUSHMA Alcantara Attending Un available KOSTA BRUNER-SUZI, SUSHMA Alcantraa Primary Care Un available Kosta RHOADES-C, Sushma Primary Care Physician Kosta RHOADES-C, Sushma Attending Physician [phone] Kosta RHOADES-C, Sushma Referring Provider Kosta RHOADES, Sushma Primary Care Lambert Brambila VALUE ANALYST, Sushma Attending Lambert Brambila VALUE ANALYST, Sushma Referring Lambert e Kosta VALUE ANALYST, Sushma Primary Care Lambert e Kosta VALUE ANALYST, Sushma Attending Lambert e Kosta VALUE ANALYST, Sushma Referring Lambert e Kosta VALUE ANALYST, Sushma Attending Lambert e Kosta VALUE ANALYST, [place] Primary Care Unavailabl e Medications Current Medications Medication Drug Class(es) Dates Sig (Normalized) Sig (Original) azithromycin 250 mg oral tablet (2 sources) Macrolide Antimicrobial Start: 10-02-2022 take 2-5 tablets by mouth once daily biotin 1 mg oral capsule (2 sources) Start: 10-02-2022 take 1 capsule by mouth once daily calcium carbonate 500 mg chewable tablet (1 [...] 0 Refill(s) Start Date: 10/09/20 Status: Ordered Multivitamin tablet (1 source) Start: 10-02-2022 terbinafine hydrochloride 10 mg/ml topical cream (1 source) Allylamine Antifungal Start: 06-08-2025 End: 07-06-2025 apply 1 dose topically twice daily terbinafine 1% topical cream Apply 1 curt, Topical, BID, X 14 day(s), # 30 gram(s), 1 Refill(s), Pharmacy: [facility], Cream, 164, cm, 06/08/25 16:04:00 EDT, Height, [...] Date Documented Da te Episodic/Chronic Acute bronchitis (3 sources) Acute bronchitis; Translations: [Acute bronchitis, unspecified] 10-02-2022 Episodic Allergic reactions (2 sources) Allergic condition 05-08-2024 Episodic Mycoses (1 source) Pityriasis versicolor 06-08-2025 Episodic Other screening for suspected conditions (not mental disorders or infectious disease) (3 sources) Encounter for screening for malignant neoplasm of cervix; Translations: [Encounter for screening mammogram for malignant neoplasm of breast] Onset: 06-08-2025 Episodic Thyroid disorders (1 source) Hypothyroidism, unspecified; Translations: [Hypothyroidism, unspecified] Onset: 07-10-2025 Chronic Unclassified (8 sources) Patient encounter status 10-09-2020 Unclassified (1 source) Cancer cervix screening status 06-08-2025 Results Test Name Value Interpretation Reference Range Facility Anion gap in Serum or Plasma Ordered By: Sushma Brambila on 07-03-2025 Anion gap [Moles/Vol] 12 mmol/L 02-08 [facility] BUN/creatinine ratioOrdered By: Sushma Brambila on 07-03-2025 Urea nitrogen/Creatinine [Mass ratio] 26.7 mg/mg High 07-16 [facility] Bilirubin, totalOrdered By: Sushma Brambila on 07-03-2025 Bilirubin [Mass/Vol] 0.33 mg/dL 0.00-1.30 [facility] CBC-Complete Blood Cnt No Di ffon 07-03-2025 Erythrocyte distribution width (RBC) [Ratio] 12.0 % Normal 11.6-14.6 [facility] Comment on above: Performed By: #### L 100.0500, L500.4100, L500.4050, L501.9520, L506.0400, L501.9985 #### [facility] [address] [place], [address] Hematocrit (Bld) [Volume fraction] 41.2 % Normal 37-47 [facility] Comment on above: Performed By: #### L 100.0500, L500.4100, L500.4050, L501.9520, L506.0400, L501.9985 #### [facility] [address] [place], [address] Hemoglobin (Bld) [Mass/Vol] 13.8 g/dL Normal 12.0-15.0 [facility] Comment on above: Performed By: #### L 100.0500, L500.4100, L500.4050, L501.9520, L506.0400, L501.9985 #### [facility] [address] [place], [address] MCH (RBC) [Entitic mass] 30.6 pg Normal 27.0-32.0 [facility] Comment on above: Performed By: #### L 100.0500, L500.4100, L500.4050, L501.9520, L506.0400, L501.9985 #### [facility] [address] [place], [address] MCHC (RBC) [Mass/Vol] 33.5 g/dL Normal 32-36 [facility] Comment on above: Performed By: #### L 100.0500, L500.4100, L500.4050, L501.9520, L506.0400, L501.9985 #### [facility] [address] [place], [address] MCV (RBC) [Entitic vol] 91.4 fL Normal 81-99 [facility] Comment on above: Performed By: #### L 100.0500, L500.4100, L500.4050, L501.9520, L506.0400, L501.9985 #### [facility] [address] [place], [address] Platelet mean volume (Bld) [Entitic vol] 10.2 fL Normal 6.2-12.0 [facility] Comment on above: Performed By: #### L 100.0500, L500.4100, L500.4050, L501.9520, L506.0400, L501.9985 #### [facility] [address] [place], [address] Platelets (Bld) [#/Vol] 263 10*3/uL Normal 150-450 [facility] Comment on above: Performed By: #### L 100.0500, L500.4100, L500.4050, L501.9520, L506.0400, L501.9985 #### [facility] [address] [place], [address] RBC (Bld) [#/Vol] 4.51 10*6/uL Normal 4.2-5.[address] [facility] Comment on above: Performed By: #### L 100.0500, L500.4100, L500.4050, L501.9520, L506.0400, L501.9985 #### [facility] [address] [place], [address] RDW SD 40.2 fl Normal 35.1-43.9 [facility] Comment on above: Performed By: #### L 100.0500, L500.4100, L500.4050, L501.9520, L506.0400, L501.9985 #### [facility] [address] [place], [address] WBC (Bld) [#/Vol] 3.8 10*3/uL Low 4.4-11.0 [facility] Comment on above: Performed By: #### L 100.0500, L500.4100, L500.4050, L501.9520, L506.0400, L501.9985 #### [facility] [address] [place], [address] Calculated very low density lipoprotein (VLDL) cholesterol measurementOrdered By: Sushma Brambila on 07-03-2025 Calculated very low density lipoprotein (VLDL) cholesterol measurement 19 mg/dL 5-40 [facility] Carbon dioxide, total [Moles /volume] in Central venous bloodOrdered By: Sushma Brambila on 07-03-2025 CO2 [Moles/Vol] 23.5 mmol/L 21.0-32.0 [facility] Chloride assayOrdered By: Dm Brambila on 07-03-2025 Chloride [Moles/Vol] 104 mmol/L 98-108 [facility] Comprehensive Metabolic Prof ilon 07-03-2025 Albumin [Mass/Vol] 4.3 g/dL Normal 3.4-4.8 [facility] Comment on above: Performed By: #### L 100.0500, L500.4100, L500.4050, L501.9520, L506.0400, L501.9985 #### [facility] [address], [address] Albumin/Globulin [Mass ratio] 1.5 {ratio} Normal 0.9-2.4 [facility] Comment on above: Performed By: #### L 100.0500, L500.4100, L500.4050, L501.9520, L506.0400, L501.9985 #### [facility] [address] [place], [address] ALK PHOS 54 U/L Normal 35-104 [facility] Comment on above: Performed By: #### L 100.0500, L500.4100, L500.4050, L501.9520, L506.0400, L501.9985 #### [facility] [address] [place], [address] ALT [Catalytic activity/Vol] 16 U/L Normal <=34 [facility] Comment on above: Performed By: #### L 100.0500, L500.4100, L500.4050, L501.9520, L506.0400, L501.9985 #### [facility] [address] [place], [address] AST [Catalytic activity/Vol] 21 U/L Normal <=31 [facility] Comment on above: Performed By: #### L 100.0500, L500.4100, L500.4050, L501.9520, L506.0400, L501.9985 #### [facility] [address] [place], [address] Bilirubin [Mass/Vol] 0.33 mg/dL Normal 0.00-1.30 [facility] Comment on above: Performed By: #### L 100.0500, L500.4100, L500.4050, L501.9520, L506.0400, L501.9985 #### [facility] [address] [place], [address] BUN/CRE 26.7 RATIO High 10-20 [facility] Comment on above: Performed By: #### L 100.0500, L500.4100, L500.4050, L501.9520, L506.0400, L501.9985 #### [facility] [address] [place], [address] Calcium [Mass/Vol] 9.7 mg/dL Normal 7.6-11.0 [facility] Comment on above: Performed By: #### L 100.0500, L500.4100, L500.4050, L501.9520, L506.0400, L501.9985 #### [facility] [address] [place], [address] Chloride [Moles/Vol] 104 mmol/L Normal 98-108 [facility] Comment on above: Performed By: #### L 100.0500, L500.4100, L500.4050, L501.9520, L506.0400, L501.9985 #### [facility] [address] [place], [address] CO2 [Moles/Vol] 23.5 mmol/L Normal 21.0-32.0 [facility] Comment on above: Performed By: #### L 100.0500, L500.4100, L500.4050, L501.9520, L506.0400, L501.9985 #### [facility] [address] [place], [place], [id number] ([address] Creatinine [Mass/Vol] 0.79 mg/dL Normal 0.70-1.20 [facility] Comment on above: Performed By: #### L 100.0500, L500.4100, L500.4050, L501.9520, L506.0400, L501.9985 #### [facility] [address] [place], [place], [id number] [phone] Normal 5-15 [facility] Comment on above: Performed By: #### L 100.0500, L500.4100, L500.4050, L501.9520, L506.0400, L501.9985 #### [facility] [address] [place], [place], [id number] (569 GFR/1.73 sq M.predicted among non-blacks MDRD (S/P/Bld) [Vol rate/Area] 84 mL/min/{1.73_m2} Normal >60 [facility] Comment on above: Result Comment: mL/m in/1.73m2 CKD-EPI Creatinine Equation (2020) Performed By: #### L 100.0500, L500.4100, L500.4050, L501.9520, L506.0400, L501.9985 #### [facility] [address] [place], [address] Globulin (S) [Mass/Vol] 2.9 g/dL Normal 2.2-4.2 [facility] Comment on above: Performed By: #### L 100.0500, L500.4100, L500.4050, L501.9520, L506.0400, L501.9985 #### [facility] [address] [place], [address] Glucose [Mass/Vol] 92 mg/dL Normal 70-99 [facility] Comment on above: Performed By: #### L 100.0500, L500.4100, L500.4050, L501.9520, L506.0400, L501.9985 #### [facility] [address] [place], [address] Potassium [Moles/Vol] 4.1 mmol/L Normal 3.3-5.1 [facility] Comment on above: Performed By: #### L 100.0500, L500.4100, L500.4050, L501.9520, L506.0400, L501.9985 #### [facility] [address] [place], [address] Sodium [Moles/Vol] 140 mmol/L Normal 133-145 [facility] Comment on above: Performed By: #### L 100.0500, L500.4100, L500.4050, L501.9520, L506.0400, L501.9985 #### [facility] [address] [place], [address] T PROT 7.2 g/dL Normal 5.9-8.4 [facility] Comment on above: Performed By: #### L 100.0500, L500.4100, L500.4050, L501.9520, L506.0400, L501.9985 #### [facility] [address] [place], [address] Urea nitrogen [Mass/Vol] 21 mg/dL High 4-19 [facility] Comment on above: Performed By: #### L 100.0500, L500.4100, L500.4050, L501.9520, L506.0400, L501.9985 #### [facility] [address] [place], [address] Erythrocyte distribution wid th ratioOrdered By: Sushma Brambila on 07-03-2025 Erythrocyte distribution width (RBC) [Ratio] 12.0 % 11.6-14.6 [facility] Erythrocyte distribution wid th standard deviationOrdered By: Sushma Brambila on 07-03-2025 Erythrocyte distribution width (RBC) [Ratio] 40.2 fl 35.1-43.9 [facility] Glomerular filtration rate ( GFR) estimation/1.73 sq m using serum, plasma, or whole bOrdered By: Sushma Brambila on 07-03-2025 GFR/1.73 sq M.predicted among non-blacks MDRD (S/P/Bld) [Vol rate/Area] 84 mL/min/{1.73_m2} >60 [facility] Comment on above: mL/min/1.73m2 CKD-EP I Creatinine Equation (2020) Hematocrit Auto (Bld) [Volum e fraction]Ordered By: Sushma Brambila on 07-03-2025 Hematocrit (Bld) [Volume fraction] 41.2 % 37-47 [facility] Hemoglobin A1con 07-03-2025 HbA1c (Bld) [Mass fraction] 5.6 % Normal <=5.6 [facility] Comment on above: Result Comment: Norm al < 5.7 % Prediabetic 5.7 - 6.4 % Diabetic >or= 6.5 % Please note range changes. Performed By: #### L 100.0500, L500.4100, L500.4050, L501.9520, L506.0400, L501.9985 #### [facility] [address] [place], [place], [id number] Hemoglobin A1c percentageOrd ered By: Sushma Brambila on 07-03-2025 HbA1c (Bld) [Mass fraction] 5.6 % <5.7 [facility] Comment on above: Normal < 5.7 % Predi abetic 5.7 - 6.4 % Diabetic >or= 6.5 % Please note range changes. Hemoglobin measurementOrdere d By: Sushma Brambila on 07-03-2025 Hemoglobin (Bld) [Mass/Vol] 13.8 g/dL 12.0-15.0 [facility] LDL calc ser/plasOrdered By: Sushma Brambila on 07-03-2025 Cholesterol in LDL [Mass/Vol] 155 mg/dL [facility] Comment on above: Kksgrpkuyw=568-896 m g/dL & Higher Rycv=139 mg/dL or greaterFriedwald Equation for LDL-C Laboratory - Chemistry and C hemistry - challengeOrdered By: Sushma Brambila on 07-03-2025 AST [Catalytic activity/Vol] 21 U/L <32 [facility] Lipid Profileon 07-03-2025 CHOL:HDL 3.49 Normal [facility] Comment on above: Performed By: #### L 100.0500, L500.4100, L500.4050, L501.9520, L506.0400, L501.9985 #### [facility] [address] [place], [place], [id number] Cholesterol [Mass/Vol] 244 mg/dL High <=200 [facility] Comment on above: Result Comment: Chol esterol level, Desirable <200 mg/dL Borderline high cholesterol 200-239 mg/dL High cholesterol >=240 mg/dL Recommendations of the NCEP Adult Treatment Panel for the following risk-cutoff thresholds for the [place] population. Performed By: #### L 100.0500, L500.4100, L500.4050, L501.9520, L506.0400, L501.9985 #### [facility] [address] [place], [place], [id number] Cholesterol in HDL [Mass/Vol] 70 mg/dL Normal [facility] Comment on above: Result Comment: Luisa onal Cholesterol Education Program (NCEP) guidelines: <40 mg/dL: Low HDL-cholesterol (major risk factor for CHD) >= 60 mg/dL: High HDL-cholesterol (negative risk factor for CHD) HDL-cholesterol is affected by a number of factors, e.g. smoking, exercise, hormones, sex and age. Performed By: #### L 100.0500, L500.4100, L500.4050, L501.9520, L506.0400, L501.9985 #### [facility] [address] [place], [address] Cholesterol in LDL [Mass/Vol] 155 mg/dL Normal [facility] Comment on above: Result Comment: Bord bezkkz=508-642 mg/dL Higher Zdkn=049 mg/dL or greater Friedwald Equation for LDL-C Performed By: #### L 100.0500, L500.4100, L500.4050, L501.9520, L506.0400, L501.9985 #### [facility] [address] [place], [address] Cholesterol in VLDL [Mass/Vol] 19 mg/dL Normal 5-40 [facility] Comment on above: Performed By: #### L 100.0500, L500.4100, L500.4050, L501.9520, L506.0400, L501.9985 #### [facility] [address] [place], [address] Triglyceride [Mass/Vol] 94 mg/dL Normal [facility] Comment on above: Result Comment: The drugs N-Acetylcysteine and Metamizole may falsely depress this assay. Normal range: <150 mg/dL Borderline High: 150-199 mg/dL High: 200-499 mg/dL Very High: >500 mg/dL Performed By: #### L 100.0500, L500.4100, L500.4050, L501.9520, L506.0400, L501.9985 #### [facility] [address] [place], [address] MCV (mean corpuscular volume ) determinationOrdered By: Sushma Brambila on 07-03-2025 MCV (RBC) [Entitic vol] 91.4 fL 81-99 [facility] Mean corpuscular hemoglobin (MCH) determinationOrdered By: Sushma Brambila on 07-03-2025 MCH (RBC) [Entitic mass] 30.6 pg 27.0-32.0 [facility] Mean corpuscular hemoglobin concentration (MCHC) determinationOrdered By: Sushma Brambila on 07-03-2025 MCHC (RBC) [Mass/Vol] 33.5 g/dL 32-36 [facility] Mean platelet volume determi nationOrdered By: Sushma Brambila on 07-03-2025 Platelet mean volume (Bld) [Entitic vol] 10.2 fL 6.2-12.0 [facility] Platelet countOrdered By: Dm Brambila on 07-03-2025 Platelets (Bld) [#/Vol] 263 10*3/uL 150-450 [facility] Potassium measurement (mass/ volume)Ordered By: Sushma Brambila on 07-03-2025 Potassium (Unsp spec) [Mass/Vol] 4.1 mmol/L 3.3-5.1 [facility] RBC Auto (Bld) [#/Vol]Ordere d By: Sushma Brambila on 07-03-2025 RBC (Bld) [#/Vol] 4.51 10*6/uL 4.2-5.[address] [facility] Screening total cholesterol/ high density lipoprotein (HDL) cholesterol ratioOrdered By: Sushma Brambila on 07-03-2025 Cholesterol.total/Choles terol in HDL [Mass ratio] 3.49 {ratio} [facility] Serum creatinine measurement (mass/volume)Ordered By: Sushma Brambila on 07-03-2025 Creatinine [Mass/Vol] 0.79 mg/dL 0.70-1.20 [facility] Serum globulin measurementOr dered By: Sushma Brambila on 07-03-2025 Globulin (S) [Mass/Vol] 2.9 g/dL 2.2-4.2 [facility] Serum glucose measurement (m ass/volume)Ordered By: Sushma Brambila on 07-03-2025 Glucose [Mass/Vol] 92 mg/dL 70-99 [facility] Serum or plasma alanine wallace otransferase (ALT) measurementOrdered By: Sushma Brambila on 07-03-2025 ALT [Catalytic activity/Vol] 16 U/L <35 [facility] Serum or plasma albumin olman urement (mass/volume)Ordered By: Sushma Brambila on 07-03-2025 Albumin [Mass/Vol] 4.3 g/dL 3.4-4.8 [facility] Serum or plasma albumin/glob ulin mass ratioOrdered By: Sushma Brambila on 07-03-2025 Albumin/Globulin [Mass ratio] 1.5 {ratio} 0.9-2.4 [facility] Serum or plasma alkaline meghan sphatase measurementOrdered By: Sushma Brambila on 07-03-2025 ALP [Catalytic activity/Vol] 54 U/L 35-104 [facility] Serum or plasma calcium olman urement (mass/volume)Ordered By: Sushma Brambila on 07-03-2025 Calcium [Mass/Vol] 9.7 mg/dL 7.6-11.0 [facility] Serum or plasma cholesterol in HDL measurement (mass/volume)Ordered By: Sushma Brambila on 07-03-2025 Cholesterol in HDL [Mass/Vol] 70 mg/dL >40 [facility] Comment on above: National Cholesterol Education Program (NCEP) guidelines:<40 mg/dL: Low HDL-cholesterol (major risk factor for CHD)>= 60 mg/dL: High HDL-cholesterol (negative risk factor for CHD)HDL-cholesterol is affected by a number of factors, e.g. smoking, exercise, hormones, sex and age. Serum or plasma cholesterol measurement (mass/volume)Ordered By: Sushma Brambila on 07-03-2025 Cholesterol [Mass/Vol] 244 mg/dL High <201 [facility] Comment on above: Cholesterol level, D esirable <200 mg/dLBorderline high cholesterol 200-239 mg/dLHigh cholesterol >=240 mg/dLRecommendations of the NCEP Adult Treatment Panel for the following risk-cutoff thresholds for the [place] population. Serum or plasma urea nitroge n measurement (mass/volume)Ordered By: Sushma Brambila on 07-03-2025 Urea nitrogen [Mass/Vol] 21 mg/dL High 4-19 [facility] Sodium levelOrdered By: Cyndee Brambila on 07-03-2025 Sodium [Moles/Vol] 140 mmol/L 133-145 [facility] T4 Free Directon 07-03-2025 T4 FREE DIRECT 0.90 ng/dL Normal 0.76-1.46 [facility] Comment on above: Performed By: #### L 100.0500, L500.4100, L500.4050, L501.9520, L506.0400, L501.9985 #### [facility] [address] [place], [address] T4 freeOrdered By: Sushma Brambila on 07-03-2025 Free T4 [Mass/Vol] 0.90 ng/dL 0.76-1.46 [facility] TSH DL <= 0.005 mIU/L QnOrde red By: Sushma Brambila on 07-03-2025 TSH Qn 10.900 uIU/mL High 0.300-4.200 [facility] Thyroid Stim Hormone (TSH)on 07-03-2025 TSH 10.900 uIU/mL High 0.300-4.200 [facility] Comment on above: Performed By: #### L 100.0500, L500.4100, L500.4050, L501.9520, L506.0400, L501.9985 #### [facility] [address] [place], [address] Total proteinOrdered By: Marilyn Brambila on 07-03-2025 Protein [Mass/Vol] 7.2 g/dL 5.9-8.4 [facility] Triglycerides measurementOrd ered By: Sushma Brambila on 07-03-2025 Triglyceride [Mass/Vol] 94 mg/dL <199 [facility] Comment on above: The drugs N-Acetylcy steine and Metamizole may falsely depress this assay. Normal range: <150 mg/dLBorderline High: 150-199 mg/dLHigh: 200-499 mg/dLVery High: >500 mg/dL White blood cell (WBC) count Ordered By: Sushma Brambila on 07-03-2025 WBC (Bld) [#/Vol] 3.8 10*3/uL Low 4.4-11.0 [facility] Breast imaging reportOrdered By: Karlee Saul on 06-29-2025 Study report [facility] Imaging Services [address] [place], [place] [address] SCRN MAMM (CAD)W/ERNESTO BILAT MR#: [id number] Acct: [id number] Name: CLARISA REDDY NADEEM Rep #: [id number] : 1960 F 65 From: Nasrin Saul MD PCP: Sushma Brambila, JF-C Status: RE G CLI Study:SCRN MAMM (CAD)W/ERNESTO BILAT Date of Exa m: 06/29/25 Exam# [id number] Ordering Dr: Sushma Brambila NP VALUE ANALYST-C EXAM: SCRN MAMM (CAD)W/ERNESTO BILAT DATE: 06/29/2025 CLINICAL HISTORY: F, Age 65 y/o , SCREENING TECHNIQUE: Procedure Code: BISMWCADBTOM Modality: MG Procedure: SCRN MAMM (CAD)W/ERNESTO BILAT COMPARISON: Prior exam(s) dated 05/23/2024, 12/07/2022, 10/27/2021. FINDINGS: TISSUE DENSITY: There are scattered areas of fibroglandular density. Bilateral Breast Mammographic Findings: No significant masses, calcifications or other abnormalities are identified. BI/SCRN MAMM (CAD)W/ERNESTO BILAT IMPRESSION: There is no mammographic evidence of malignancy. OVERALL FINAL ASSESSMENT BI-RADS 1: NEGATIVE. RECOMMENDATION: Routine annual follow-up in 1 Year Additional Recommendation none A letter with findings and recommendations will be mailed to the patient. Reading Location: [facility] CC: ANTONINA Brambila ~ Belting And Webbing Inspector: Signed [facility] SCRN MAMM (CAD)W/ERNESTO BILATo n 06-29-2025 SCRN MAMM (CAD)W/ERNESTO BILAT [facility] Imaging Services [address] [place], [place] [address] SCRN MAMM (CAD)W/ERNESTO BILAT MR#: [id number] Acct: [id number] Name: CLARISA REDDY NADEEM Rep #: [id number] : 1960 F 65 From: Karlee Saul MD PCP: ANTONINA Leslie Status: REG CLI Study: SCRN MAMM (CAD)W/ERNESTO BILAT Date of Exam: 12/19 Exam# [id number] Ordering Dr: Sushma Brambila NP EXAM: SCRN MAMM (CAD)W/ERNESTO BILAT DATE: 06/29/2025 CLINICAL HISTORY: F, Age 65 y/o , SCREENING TECHNIQUE: Procedure Code: BISMWCADBTOM Modality: MG Procedure: SCRN MAMM (CAD)W/ERNESTO BILAT COMPARISON: Prior exam(s) dated 05/23/2024, 12/07/2022, 10/27/2021. FINDINGS: TISSUE DENSITY: There are scattered areas of fibroglandular density. Bilateral Breast Mammographic Findings: No significant masses, calcifications or other abnormalities are identified. BI/SCRN MAMM (CAD)W/ERNESTO BILAT IMPRESSION: There is no mammographic evidence of malignancy. OVERALL FINAL ASSESSMENT BI-RADS 1: NEGATIVE. RECOMMENDATION: Routine annual follow-up in 1 Year Additional Recommendation none A letter with findings and recommendations will be mailed to the patient. Reading Location: [id number] CC: ANTNOINA Brambila Belting And Webbing Inspector: Signed Normal [facility] Pre Owned Sales Manager Cytology Reporton 2024 Pre Owned Sales Manager Cytology Report . Pathology Reports Accession: Collected Date/Time: Received Date/Time: Pathologist: [id number] 06/08/2025 16:43 EDT 06/08/2025 18:00 EDT Pre Owned Sales Manager Cytology Report SPECIMEN: Specimen Description: Liquid Prep Reflex ASCUS+ Specimen: Cervical/Endocervica l Screening or Diagnostic: Screening RELEVANT HISTORY: LMP: Menopause SPECIMEN ADEQUACY: SATISFACTORY FOR EVALUATION Endocervical/Transfo rmational zone component presence can not be determined due to marked atrophy INTERPRETATION/RESUL TS: NEGATIVE FOR INTRAEPITHELIAL LESION OR MALIGNANCY COMMENT: This Pap Test was successfully processed and evaluated with the assistance of the [employer] ThinPrep Test Imaging System. Verified by Pathology report verified by [facility] Screened by: DOTTY Electronically signed by Libia WALLS (ASCP) Sign-Out Date: 06/14/2025 11:58 Performing Lab: [facility], [address] [address] Pathology Dept Disclaimer The Pap test is a screening test for cervical cancer. As evidenced by published data, it is subject to both inherent false negative and false positive results. Your patient's results should be interpreted in context with pertinent clinical history including gynecological examination. Normal [facility] Absolute lymphocyte countOrd ered By: Ida Crews on 11-02-2022 Lymphocytes Auto (Unsp spec) [#/Vol] 1.85 10*3/uL 0.83-4.51 [facility] Basophil percentageOrdered B y: Ida Crews on 11-02-2022 Basophils/100 WBC (Bld) 0.5 % 0-1 [facility] Eosinophils/100 WBC (Bld) 3.6 % 0-5 [facility] Neutrophils (Bld) [#/Vol] 4.7 10*3/uL 2.0-7.7 [facility] Neutrophils/100 WBC (Bld) 60.6 % 47-70 [facility] WBC (Bld) [#/Vol] 7.7 10*3/uL 4.4-11.0 [facility] Blood erythrocytes count (nu mber/volume)Ordered By: Ida Crews on 11-02-2022 RBC (Bld) [#/Vol] 4.45 10*6/uL 4.2-5.[address] [facility] Blood hemoglobin measurement (mass/volume)Ordered By: Ida Crews on 11-02-2022 Hemoglobin (Bld) [Mass/Vol] 13.3 g/dL 12.0-15.0 [facility] Blood lymphocytes/100 leukoc ytesOrdered By: [place] on 11-02-2022 Lymphocytes/100 WBC (Bld) 24.0 % 19-41 [facility] Blood monocytes/100 leukocyt esOrdered By: Idaluiz Crews on 11-02-2022 Monocytes/100 WBC (Bld) 10.9 % 0-10 [facility] Blood platelet mean volumeOr dered By: Idaluiz Crews on 11-02-2022 Platelet mean volume (Bld) [Entitic vol] 10.2 fL 6.2-12.0 [facility] Determination of erythrocyte mean corpuscular volume (MCV)Ordered By: Idaluiz Crews on 11-02-2022 MCV (RBC) [Entitic vol] 94.4 fL 81-99 [facility] Hematocrit Auto (Bld) [Volum e fraction]Ordered By: [place] Mars on 11-02-2022 Hematocrit (Bld) [Volume fraction] 42.0 % 37-47 [facility] Laboratory - Hematology and Cell countsOrdered By: Idaluiz Crews on 11-02-2022 Erythrocyte distribution width (RBC) [Entitic vol] 42.8 fL 35.1-43.9 [facility] Erythrocyte distribution width (RBC) [Ratio] 12.3 % 11.6-14.6 [facility] Immature granulocytes/100 WBC (Bld) 0.400 % 0.0-0.9 [facility] Comment on above: IG% - Immature Granu locytes (promyelocytes, myelocytes and metamyelocytes) > 1% indicates that a LEFT SHIFT is Present. MCH (RBC) [Entitic mass] 29.9 pg 27.0-32.0 [facility] Nucleated RBC/100 WBC (Bld) [Ratio] 0 % 0-5 [facility] MCHC Auto (RBC) [Mass/Vol]Or dered By: Ida Crews on 11-02-2022 MCHC (RBC) [Mass/Vol] 31.7 g/dL 32-36 [facility] Platelets bldOrdered By: Yamila Crews on 11-02-2022 Platelets (Bld) [#/Vol] 259 10*3/uL 150-450 [facility] Vital Signs Date Time Vital Sign Value Performing Clinician Facility 09-08-2024 09:25-0500 Diastolic Blood Pressure Non-Invasive 60 mm[Hg] DR DAMION TREJO MD [address] [place] [address] 09-08-2024 09:25-0500 Heart rate 55 /min DR DAMION TREJO MD [address] [place] [address] 09-08-2024 09:25-0500 Respiratory rate 15 /min DR DAMION TREJO MD [address] [place] [address] 09-08-2024 09:25-0500 Systolic Blood Pressure Non-Invasive 137 mm[Hg] DR DAMION TREJO MD [address] [place] [address] 09-08-2024 09:20-0500 Diastolic Blood Pressure Non-Invasive 119 mm[Hg] DR DAMION TREJO MD [address] [place] [address] 09-08-2024 09:20-0500 Heart rate 56 /min DR DAMION TREJO MD [address] [place] [address] 09-08-2024 09:20-0500 Respiratory rate 10 /min DR DAMION TREJO MD [facility] 09-08-2024 09:20-0500 Systolic Blood Pressure Non-Invasive 138 mm[Hg] DR DAMION TREJO MD [address] [place] [address] 09-08-2024 09:15-0500 Diastolic Blood Pressure Non-Invasive 67 mm[Hg] DR DAMION TREJO MD [address] [place] [address] 09-08-2024 09:15-0500 Heart rate 56 /min DR DAMION TREJO MD [facility] 09-08-2024 09:15-0500 Respiratory rate 15 /min DR DAMION TREJO MD [facility] 09-08-2024 09:15-0500 Systolic Blood Pressure Non-Invasive 165 mm[Hg] DR DAMION TREJO MD [facility] 09-08-2024 09:10-0500 Body temperature 97.52 [degF] DR DAMION TREJO MD [facility] 09-08-2024 09:10-0500 Respiratory Rate - Anes 0 br/min DR DAMION TREJO MD [facility] 09-08-2024 09:05-0500 Respiratory Rate - Anes 19 br/min DR DAMION TREJO MD [facility] 09-08-2024 09:00-0500 Respiratory Rate - Anes 21 br/min DR DAMION TREJO MD [facility] 09-08-2024 08:00-0500 Body height [address] DAMION TREJO MD [facility] 09-08-2024 08:00-0500 Body temperature 97.16 [degF] DR DAMION TREJO MD [facility] 09-08-2024 08:00-0500 Body weight 59.[address] DAMION TREJO MD [facility] 09-08-2024 08:00-0500 Body weight 21.97 kg/m2 DR DAMION TREJO MD [facility] 09-08-2024 08:00-0500 Heart rate 70 /min DR DAMION TREJO MD [facility] 10-02-2022 14:12-0500 Body height 166.37 cm VALUE ANALYST-C Sushma Brambila VALUE ANALYST Work Phone: [facility] 10-02-2022 14:12-0500 Body mass index (BMI) [Ratio] 21.1 kg/m2 VALUE ANALYST-C Sushma Brambila VALUE ANALYST Work Phone: [facility] 10-02-2022 14:12-0500 Body temperature 98.4 [degF] VALUE ANALYST-C Sushma Brambila VALUE ANALYST Work Phone: [facility] 10-02-2022 14:12-0500 Body weight 58.51 kg VALUE ANALYST-C Sushma Brambila VALUE ANALYST Work Phone: [facility] 10-02-2022 14:12-0500 Diastolic blood pressure 74 mm[Hg] VALUE ANALYST-C Sushma Brambila VALUE ANALYST Work Phone: [facility] 10-02-2022 14:12-0500 Heart rate 94 /min VALUE ANALYST-C Sushma Brambila VALUE ANALYST Work Phone: [facility] 10-02-2022 14:12-0500 Respiratory rate 18 /min VALUE ANALYST-C Sushma Brambila VALUE ANALYST Work Phone: [facility] 10-02-2022 14:12-0500 SaO2% (BldA) [Mass fraction] 99 % VALUE ANALYST-C Sushma Brambila VALUE ANALYST Work Phone: [facility] 10-02-2022 14:12-0500 Systolic blood pressure 136 mm[Hg] VALUE ANALYST-C Sushma Brambila VALUE ANALYST Work Phone: [facility] Encounters Encounter Date Encounter Type Care Provider Facility Start: 07-22-2025 Encounter for genera l adult medical examination without abnormal findings Sushma Brambila NP [facility] Start: 07-10-2025 ambulatory Sushma Brambila NP Fa cility:[facility] Start: 07-03-2025 Patient encounter procedure Sushma Brambila NP-C -[facility] [place] Work Phone: Start: 07-03-2025 End: 07-03-2025 ambulatory Sushma Brambila NP Facility:[facility] Start: 06-29-2025 End: 06-29-2025 ambulatory Sushma Brambila VALUE ANALYSTLulC Work Phone: -[facility] Start: 06-29-2025 End: 06-29-2025 Patient encounter procedure Sushma Brambila NP-C -[facility] Work Phone: Start: 06-29-2025 End: 06-29-2025 ambulatory Sushma Brambila NP Facility:[facility] Start: 06-08-2025 End: 06-12-2025 ambulatory SUSHMA BRAMBILA SPINNING MACHINE TENDER-WOUND CARE NURSE Facility:[facility] Start: 06-08-2025 End: 06-12-2025 Outreach Lab SUSHMA BRAMBILA SPINNING MACHINE TENDER-WOUND CARE NURSE [facility] Start: 09-08-2024 End: 09-08-[address] DAMION TREJO MD Facility:[facility] Start: 09-08-2024 End: 09-08-[address] DAMION TREJO MD [facility] Start: 11-02-2022 End: 11-02-2022 ambulatory VALUE ANALYSTBraydon Brambila NP Work Phone: [facility] Work Phone: Start: 11-02-2022 End: 11-02-2022 Patient encounter procedure VALUE ANALYST-Jacquie Brambila NP Work Phone[facility] Start: 10-02-2022 End: 10-02-2022 Patient encounter procedure VALUE ANALYSTBraydon Brambila VALUE ANALYST Work Phone: [facility] Procedures Date Procedure Procedure Detail Performing Clinician Start: 06-29-2025 Screening mammography Jesus Brambila VALUE ANALYST-C Work Phone: Colonoscopy normal (finding) DR DAMION TREJO MD Immunizations Immunization Date Immunization Notes Care Provider Fa cility 01-09-2021 SARS-CoV-2 (COVID-19 ) mRNA-[address] DAMION TREJO MD [facility] Comment on above: Result Comment: 2023: [id number] 12-12-2020 SARS-CoV-2 (COVID-19 ) mRNA-[address] DAMION TREJO MD [facility] Comment on above: Result Comment: 2023: TPV50 07-12-2020 influenza virus vaccine, unspecified formulation DR DAMION TREJO MD [facility] 09-27-[address] DAMION TREJO MD [facility] 07-16-2015 tetanus toxoid, redu olinda diphtheria toxoid, and acellular pertussis vaccine, adsorbed DR DAMION TREJO MD [facility] 07-28-2013 influenza virus vaccine, unspecified formulation DR DAMION TREJO MD [facility] Payers Date Payer Category Payer Self-pay [id number] 2025 Private Health Insurance [id number] 2024 Private Health Insurance [id number] 1960 Unknown [id number] 1960 Unknown [id number] [id number] Unknown [id number] Unknown [id number] [id number] Unknown [id number] [id number] [id number] Unknown [id number] 2.16.8 [id number] Social History Date Type Detail Facility Start: 10-02-2022 Tobacco smoking stat [facility] Unknown if ever smoked [facility] Start: 1960 Sex Assigned At Female [facility] Start: 08-09-2019 End: 10-02-2022 Tobacco smoking status Never smoked tobacco (finding) [facility] Sex Assigned At [facility] Start: 06-27-2014 Sex Female (finding) [facility] Sex Female [facility] Functional Status Date Assessment Result Facility 09-08-2024 Functional Status Repositions self [facility] Mental Status Date Assessment Result Facility 09-08-2024 Mental Status Orientation Asse ssment Oriented x 4 [facility] Clinical Notes 09-08-2024 to 06-08-2025 LaboratoryRadiology Note Date & Type Note Facility 06-08-2025 Evaluation + Plan note Future Scheduled TestsThyroid Stimulating Hormone 06/08/25Free T4 06/08/25A1C Hemoglobin 06/08/25Complete Blood Count 06/08/25Lipid Profile 06/08/25Complete Metabolic Panel 06/08/25MA Mammo Screening Bilateral w/ Ernesto 06/08/25 [facility] 09-08-2024 Evaluation + Plan note Extrac earline from: Title:Clinical Document Author:DAMION TREJO Date:09/08/24 [facility] ADMISSION HISTORY AN D PHYSICIAL CHIEF COMPLAINT: HISTORY OF PRESENT ILLNESS: REVIEW OF SYSTEMS: ACTIVE PROBLEMS: (5) Allergies (9552560681) Osteoporosis screening (910162841) Screening for breast cancer (388138608) Screening for colon cancer (375760350) Well adult exam (435356737) MEDICATIONS: Active Inpt Meds: None Active PRN Meds: None One Time Meds: None Active IV Meds: None ALLERGIES: (1) NKA FAMILY HISTORY: SOCIAL HISTORY: PHYSICAL EXAM: VITALS: YfklolBneaEDKhvguABDuP1EWA6HwwyGq(kg) 09/08 08:0036.2--930649LB06/13 59.1 24 Hr Tmax: 36.2 at 09/08 [...] Appointments Appointment Date:09/11/2024 09:00:00 AM Scheduled Provider:SUSHMA BRAMBILA Location:[facility] Appointment Type:PC OV Future Scheduled Tests Laboratory* Complete Blood Count 05/08/24 * Lipid Profile 05/08/24 * Complete Metabolic Panel 05/08/24 [facility] 12-13-2024 Hospital Discharge instructions Patient Education 09/08/2024 [...] a slower pace than normal. ?Eat soft, wbxl-ou-fmlafg foods. Take yyxj-pth-iwlxhar or prescription medicines only as told by [...] 04/27/2005 Document Revised: 07/06/2018 Document Reviewed: 11/24/2016 [employer] Patient Education 2020 [employer] 09/08/2024 09:18:34 Monitored Anesthesia Care, Care After [...] before eating solid foods. General instructions Take xdhf-oja-gbwbxav and prescription medicines only as told by [...] 01/03/2017 Document Revised: 12/12/2018 Document Reviewed: 01/03/2017 [employer] Patient Education 2020 [employer]. Follow Up Care 08/11/2024 08:10:40 With:DAMION TREJO Address: [address] [facility] [address] [place] [address] [phone] Business (1) When: Unknown Comments:Follow-up with Primary Care Physician [facility] 12-13-2024 Summary of episode note Discharge Instructions Thank you for allowing [facility] to assist you with your healthcare needs. The following is importantdischarge information regarding your hospital visit. Your Care Team SUSHMA BRAMBILA What to do next Scheduled Follow-Up Appointments Appointment Type When With Where Contact Information StatusPC OV 09/11/2024 09:00 AM EST SUSHMA BRAMBILA [address] [address] Confirmed Follow Up Appointments Follow Up with MARILEEBRITTANY MAYA Where:[address] [facility] [address] [place] [address]- [phone] Business (1) Additional Information: Follow-up with Primary Care [...] slower pace than normal. ? Eat soft, xtdu-sf-iqmknh foods. Take jfrg-gpm-wpuvmkw or prescription medicines only as told by [...] 04/27/2005 Document Revised: 07/06/2018 Document Reviewed: 11/24/2016 [employer] Patient Education 2020 [employer]. Monitored Anesthesia Care, Care After These instructions [...] before eating solid foods. General instructions Take epwx-hjz-urqcfiu and prescription medicines only as told by [...] 01/03/2017 Document Revised: 12/12/2018 Document Reviewed: 01/03/2017 [employer] Patient Education 2020 [employer] Additional Information VACCINATE! IT SAVES LIVES! Members of the community who have not yet received the COVID-19 vaccine and would like to receive it can visit one of [facility] vaccine clinics. There are many vaccine clinic locations within the [facility]. For locations and available times, please visit [email or web address].[place].gov/. It is important to note that some COVID mobile vaccine clinics are held outdoors and may be canceled in rainy or stormy conditions. To learn more about pediatric vaccinations (ages 5-11), we invite you to visit the [facility] webpage. [email or web address]/[email or web address] [email or web address] learn more about the COVID-19 vaccine, we invite you to visit the CDC website for a list of frequently asked questions.https://www.cdc.gov/coronavirus/2019-ncov/vaccines/faq.html [facility] Patient Portal Access Instructions: Stay connected with your healthcare team and access your personal medical information anytime with the [facility] Patient Portal. Please follow the directions below to create your [facility] account: 1.Access the email account you provided upon registration to the hospital/physician office.2.Look for an invitation email from [facility].3.Open the email and access the invitation link: AcceptInvitation to listedplaces.4.Fill in the required lindsey to create your account. To access your account, visit [employer]Labst. Click the blue button labeled "Access Patient Portal" and then log in with the username [...] who you will allowto register on the [facility] Patient Portal for access to your information. You can also access the [facility] on the [facility] curt. Simply click on "Patient Portal" and then log into your account. If you would like to receive a full copy of your medical records, please contact the [facility] Medical Records Department by calling [phone], Wednesday through Wednesday between 8 a.m. and [...] Call your local pharmacy or go to [email or web address] to find one close to you.3.Make use of household items: Use cat litter or old coffee grounds to dispose medications if other options arenot available. Mix your drugs with these household products, seal them in an airtight container andthrow it into the garbage. Call [facility]: [phone] to be sure your drugs can be [...] aware that I should contact my doctor. Patient/Campaign Associate Signature: Date/Time: Relationship to Patient: Witness Name/Signature: Date/Time: [facility]12-13-2024 Note Date of Service 09/08/2024 Procedure Name Screening colonoscopy Consent Taken before procedure Indication Screening colonoscopy Location [facility] Pre-Procedure Exam Screening colonoscopy Procedural Sedation Anesthesia [...] DAMION TREJO MD on 09/08/2024 09:12 AM [facility]12-13-2024 Anesthesiology Consult note Patient: CLARISA REDDY Age: [...] by TOMMY LEO on 09/08/2024 09:12 AM [facility]12-13-2024 Note [facility] ADMISSION HISTORY AND PHYSICIAL CHIEF COMPLAINT: HISTORY OF PRESENT ILLNESS: REVIEW OF SYSTEMS: ACTIVE PROBLEMS: (5) Allergies (6318251423) Osteoporosis screening (313806736) Screening for breast cancer (453128812) Screening for colon cancer (233311427) Well adult exam (525745509) MEDICATIONS: Active Inpt Meds: None Active PRN Meds: None One Time Meds: None Active IV Meds: None ALLERGIES: (1) NKA FAMILY HISTORY: SOCIAL HISTORY: PHYSICAL EXAM: VITALS: AdbyalXmlqCTQdydrKJNpP2WPW3DphvWd(kg) 09/08 08:0036.2--109320JP76/13 59.1 24 Hr Tmax: 36.2 at 09/08 [...] DAMION TREJO MD on 09/08/2024 08:55 AM [facility]12-13-2024 Anesthesiology Consult note Patient: CLARISA REDDY Age: 64 years Sex: Female : 1960 Associated Diagnoses: None Author: TOMMY LEO SPINNING MACHINE TENDER-CAMPAIGN SPECIALIST Preoperative Information Time of last food or [...] Problem list: Medical Allergies / SNOMED CT 6139346411 / Confirmed Screening for breast cancer / SNOMED CT 702016333 / Confirmed Well adult exam / SNOMED CT 640442967 / Confirmed Osteoporosis screening / SNOMED CT 115273666 / Confirmed Screening for colon cancer / SNOMED CT 923418980 / Confirmed, Active Problems (5) Allergies Osteoporosis screening Screening for breast cancer Screening for colon cancer Well adult exam Histories Past Medical History: Resolved Healthy adult (904794160): Resolved. Family History: Cancer Mother Father Sister Grandparent Diabetes mellitus Brother Hypertension Mother Father Brother Sister Grandparent Heart disease Father Brother Mother Arthritis Mother Grandparent Stroke Father Hypercholesterolemia Mother Father Brother Sister Hyperlipidemia Father Leukemia Father Cancer Sister HTN - Hypertension Mother Father Diabetes Father Brother Grandparent Procedure history: Colonoscopy normal (919802052). Social History: Social & Psychosocial Habits Alcohol [...] Signs (last 24 hrs) Last Charted Temp Bzblnwov87.2 DegC (SEP 08 08:) OAO042 mmHg (SEP 08 08:) DBPC 45mmHg (SEP 08 08:) BMI21.97 (SEP 08 08:) Measurements from flowsheet : Measurements 09/08/2024 8:00 EST Height 164 cm Admission Weight 59.1 kg Weight Method Stated Fourmile Body Weight 56.00 kg BSA Admission 1.64 [...] Designated Person #1 We May Share ASYA [phone] Designated Person #1 Relationship Spouse Privacy Restrictions Requested None Height 164 cm Admission Weight 59.1 kg Weight Method Stated Fourmile Body Weight 56.00 kg BSA Admission 1.64 [...] per patient Skin Temperature Warm Skin Description [place], Normal for ethnicity, Dry Skin Integrity Intact [...] Teaching Method Printed materials Preferred Spoken Language Panamanian Preferred Written Language Panamanian Patient's Current Physicians DR. ISMA CAZARES Discharge [...] Note-Nursing Procedure/Therapy Intake . Assessment and Plan [place] [employer] Anesthesiologists (ASA) physical status classification: Class I. Anesthetic Preoperative Plan Anesthetic technique: MAC. Postoperative pain management: Per surgeon. Informed consent: signed by patient. Digitally Signed by TOMMY LEO on 09/08/2024 08:15 AM [facility] Diagnosis Onset Date Resolution Status Acute bronchitis acute [facility] Work Phone: Evaluation noteNo assessment information available [facility] Work Phone: Hospital course Narrative No data available for this section [facility] Hospital Discharge instructions No data available for this section [facility] Progress note No data available for this section [facility] Reason for referral (narrative)No reason for referral [facility] Work Phone: Chief Complaint and Reason for Visit Chief Complaint COUGH, CONGESTED FAT IGUE E ORDER Reason for Visit Acute bronchitis Chief Complaint Admit Date SCREENING June 29, 2025 7: 01am LABS July 03, 2025 7: 16am Family History No Family History Records Found [...] Active Member Role Status Dates Shivani Dugan NP, VALUE ANALYST-C Family Provider Active Sushma Brambila NP, VALUE ANALYST-C Primary Care Provider Activ e Team Status: Inactive Member Role Status Dates Sushma Brambila NP, VALUE ANALYST-C Primary Care Provider, Refe rring Provider Active Feliciano MU[place], [place] Attending Provider Active Team Status: Inactive Member Role Status Dates Sushma Brambila NP, VALUE ANALYST-C Primary Care Provider Activ e Ida Crews NP, VALUE ANALYST-C Attending Provider, Referring Pro vider Active Team Status: Active Member Role/Relationship Status Dates Sushma Brambila NP, VALUE ANALYST-C Primary care physician Acti ve Team Status: Inactive Member Role/Relationship Status Dates Sushma Brambila NP, VALUE ANALYST-C Primary care physician Acti ve Start: June 29, 2025 End: June 29, 2025 Sushma Brambila NP, VALUE ANALYST-C Attending physician Active Start: June 29, 2025 End: June 29, 2025 Sushma Brambila NP, VALUE ANALYST-C Referring Provider Active Start: June 29, 2025 End: June 29, 2025 Team Status: Active Member Role/Relationship Status Dates Sushma Brambila NP, VALUE ANALYST-C Primary care physician Acti ve Start: July 03, 2025 Sushma Brambila NP, VALUE ANALYST-C Attending physician Active Start: July 03, 2025 Sushma Brambila NP, VALUE ANALYST-C Referring Provider Active Start: October 7th, 2025 Goals (unrecognized section and content) Goals may be documented in a n alternate section No data available for this section No data available for this sectionGoals may be documented in an alternate section INFORMATION SOURCE (unrecogn ized section and content) DATE CREATED AUTHOR 06/15/2025 [facility] DATE CREATED AUTHOR AUTHOR'S EMERITA BELÉNARPITA 07/23/2025 [facility] FOR RECORDS PERTAINING TO PATIENTS WHO ARE [...] BE BASED ON THE PRIMARY CLINICAL RECORDS. [facility]. provides no warranty or guarantee of the accuracy or completeness of information in this document.
[2025-08-14 10:41] LABS: Free T3 3.0 pg/mL (2.18-3.98)
== END | disposition home or self-care (01) ==
LOC: MTLAB 07:03
PROVIDERS: PCP Registered Nurse; Referring Provider Registered Nurse; Visit Provider Registered Nurse
DX: E03.9 Hypothyroidism, unspecified (principal)
CPT/HCPCS: 36415; 84439; 84443; 84481; 86376

== ENCOUNTER → 2025-09-25 | Outpatient (CLI) | payer OTHER, SELFPAY | END | disposition home or self-care (01) | LOC: MTLAB 09:06 | PROVIDERS: PCP Registered Nurse; Referring Provider Registered Nurse; Visit Provider Registered Nurse | DX: E03.9 Hypothyroidism, unspecified (principal) | CPT/HCPCS: 36415; 84439; 84443 ==